=== PATIENT | male | born 1970 | race Caucasian/White ===

== ENCOUNTER 2019-04-18 08:43 | Emergency (ER) | payer BC ==
[~2019-04-18] VITALS: Ht 177.8 cm; Wt 113.4 kg
[2019-04-18 09:00] VITALS: BP 163/89
[2019-04-18] MEDS ORDERED: diazePAM 5 MG TABLET PO ONE (09:15)
[2019-04-18] MEDS ORDERED: MORPHINE SULFATE 10 MG/ML VIAL. IM ONE (09:15)
[2019-04-18] MEDS ORDERED: predniSONE 10 MG TABLET PO ONE (09:15)
[2019-04-18] MEDS ORDERED: DICL50TA4 PO (09:36)
[2019-04-18] MEDS ORDERED: CYCL10TA2 PO (09:36)
[2019-04-18] MEDS ORDERED: METH4TAB2 PO (09:36)
--- NOTE | 2019-04-18 09:36 | PHYS DOC ---
Past Medical History Past Medical History: No Pertinent History Past Surgical History: No Surgical History Alcohol Use: None Drug Use: None Adult General Chief Complaint Chief Complaint: LOWER BACK PAIN OR INJURY HPI HPI Patient is a 49 year old male with history of back pain who presents to the ED today complaining of 10 out of 10 right low back pain radiating to the right lower extremity that began this morning. Patient states he was sitting on the toilet when the pain began. Patient denies any loss of bowel/bladder function. Denies any numbness or tingling to bilateral lower extremities. Denies any injury. He states he has had similar pain before and his PCP took him for physical therapy which did nothing for him. Patient states the pain is worse on movement. Review of Systems Review of Systems Constitutional: Denies fever or chills [] GI: Denies abdominal pain, nausea, vomiting, bloody stools or diarrhea [] : Denies dysuria or hematuria [] Musculoskeletal: Reports low back pain Integument: Denies rash or skin lesions [] Neurologic: Denies headache, focal weakness or sensory changes [] All other systems were reviewed and found to be within normal limits, except as documented in this note. Current Medications Current Medications Current Medications Medications (Trade) Dose Ordered Sig/Jaya Start Time Stop Time Status Last Admin Dose Admin Diazepam (Valium) 5 mg 1X ONCE 04/18/19 09:15 04/18/19 09:19 DC Morphine Sulfate (Morphine Sulfate) 5 mg 1X ONCE 04/18/19 09:15 04/18/19 09:19 DC Prednisone (Prednisone) 50 mg 1X ONCE 04/18/19 09:15 04/18/19 09:19 DC Allergies Allergies Allergies Coded Allergies Type Severity Reaction Last Updated Verified No Known Drug Allergies 04/18/19 No Physical Exam Physical Exam Constitutional: Well developed, well nourished, no acute distress, non-toxic appearance. [] Abdomen: Bowel sounds normal, soft, no tenderness, no masses, no pulsatile masses. [] Skin: Warm, dry, no erythema, no rash. [] Back: Diffuse paraspinal muscle tenderness bilateral lumbar spine, no midline spine tenderness, no CVA tenderness. Positive right leg straight raises at approximately 30. Extremities: No tenderness, no cyanosis, no clubbing, ROM intact, no edema. [] Neurologic: Alert and oriented X 3, normal motor function, normal sensory function, no focal deficits noted. [] Psychologic: Affect normal, judgement normal, mood normal. [] Current Patient Data Vital Signs Vital Signs Date Time Temp Pulse Resp B/P (MAP) Pulse Ox O2 Delivery O2 Flow Rate FiO2 04/18/19 09:00 97.6 72 18 163/89 (113) 100 Room Air 97.6 EKG EKG [] Radiology/Procedures Radiology/Procedures [] Course & Med Decision Making Course & Med Decision Making Pertinent Labs and Imaging studies reviewed. (See chart for details) This is a 49-year-old male patient presented to the ED today with right low back pain radiating to the right lower extremity. No known injury. Patient was discharged with Medrol Dosepak, cyclobenzaprine, and diclofenac. Follow-up with PCP. Benjy recommended the back. Dragon Disclaimer Dragon Disclaimer This electronic medical record was generated, in whole or in part, using a voice recognition dictation system. Departure Departure Impression: Primary Impression: Low back pain Additional Impression: Sciatica, right side Disposition: 01 HOME, SELF-CARE Condition: STABLE Referrals: BAYLEE CHA (PCP) follow up in 1 week Patient Instructions: Back Pain, Adult Additional Instructions: You were evaluated in the emergency room for back pain. Take the prescribed medications as ordered. Follow-up with your doctor in a week. Scripts Diclofenac Sodium (DICLOFENAC SODIUM) 50 Mg Tablet.dr 1 TAB PO BID, #20 TAB 0 Refills Prov: JOAN MORGAN APRN 04/18/19 Methylprednisolone (MEDROL) 4 Mg Tab.ds.pk 1 PKG PO UD, #1 PKG Prov: JOAN MORGAN APRN 04/18/19 Cyclobenzaprine Hcl (CYCLOBENZAPRINE HCL) 10 Mg Tablet 1 TAB PO TID, #30 TAB Prov: JOAN MORGAN APRN 04/18/19 Problem Qualifiers Primary Impression: Low back pain Chronicity: acute Back pain laterality: right Sciatica presence: with sciatica Sciatica laterality: sciatica of right side Qualified Codes: M54.41 - Lumbago with sciatica, right side JOAN MORGAN APRN Apr 18, 2019 09:36
== END 2019-04-18 09:46 | disposition home or self-care (01) ==
LOC: ER 08:43
DX: M54.41 Lumbago with sciatica, right side (principal)
CPT/HCPCS: 96372; 99283; J2270

== ENCOUNTER 2021-04-29 09:50 | Emergency (ER) | payer BC ==
[~2021-04-29] VITALS: Ht 177.8 cm; Wt 120.0 kg
[~2021-04-29 09:50] MED LIST: CYCL10TA2 PO; DICL50TA4 PO; METH4TAB2 PO
[2021-04-29] MEDS ORDERED: ONDANSETRON PF 4 MG/2 ML VIAL. IVP ONE (10:15)
[2021-04-29] MEDS ORDERED: IV NORMAL SALINE 1000ML BAG 1,000 ML IV SCH (10:15)
--- NOTE | 2021-04-29 10:17 | ED.ADGEN ---
Past Medical History Past Medical History: No Pertinent History Past Surgical History: Other Additional Past Surgical Histo: hand surgery Smoking Status: Never Smoker Alcohol Use: None Drug Use: None General Adult EDM: Chief Complaint: ABDOMINAL PAIN HPI: HPI: Patient is a 51-year-old male who arrives ambulatory to the emergency department complaining of right lower quadrant abdominal pain with radiation into his low back of the right side. Patient states this began yesterday evening and has only worsened. Patient states he woke last night at 11:30 PM with worsening p ain and was unable to go back to sleep. Patient describes his pain is stabbing in nature. Despite this he denies any history of genitourinary change. He further denies any nausea or vomiting. Additionally he denies any history of trauma. Is awake, alert and uncomfortable appearing. Review of Systems: Review of Systems: Constitutional: Denies fever or chills. [] Eyes: Denies change in visual acuity. [] HENT: Denies nasal congestion or sore throat. [] Respiratory: Denies cough or shortness of breath. [] Cardiovascular: Denies chest pain or edema. [] GI: Reports abdominal pain. Denies nausea, vomiting, bloody stools or diarrhe a. [] : Denies dysuria. [] Musculoskeletal: Reports back pain. Denies joint pain. [] Integument: Denies rash. [] Neurologic: Denies headache, focal weakness or sensory changes. [] Endocrine: Denies polyuria or polydipsia. [] Lymphatic: Denies swollen glands. [] Psychiatric: Denies depression or anxiety. [] Current Medications: Current Medications Medications (Trade) Dose Ordered Sig/Jaya Start Time Stop Time Status Last Admin Dose Admin Info (CONTRAST GIVEN -- Rx MONITORING) 1 each PRN DAILY PRN 04/29/21 11:00 05/01/21 10:59 Iohexol (Omnipaque 300 Mg/ml) 75 ml 1X ONCE 04/29/21 11:00 04/29/21 11:01 DC Morphine Sulfate (Morphine Sulfate) 4 mg PRN Q15MIN PRN 04/29/21 10:15 04/30/21 10:14 04/29/21 11:18 4 MG Ondansetron HCl (Zofran) 4 mg 1X ONCE 04/29/21 10:15 04/29/21 10:16 DC 04/29/21 10:37 4 MG Sodium Chloride 1,000 ml @ 100 mls/hr Q10H 04/29/21 10:15 04/29/21 20:14 04/29/21 10:38 100 MLS/HR Allergies: Allergies: Allergies Coded Allergies Type Severity Reaction Last Updated Verified No Known Drug Allergies 04/18/19 No Physical Exam: PE: Constitutional: Uncomfortable appearing. Well developed, well nourished, non- toxic appearance. [] HENT: Normocephalic, atraumatic, bilateral external ears normal, oropharynx moist, no oral exudates, nose normal. [] Eyes: PERRLA, EOMI, conjunctiva normal, no discharge. [] Neck: Normal range of motion, no tenderness, supple, no stridor. [] Cardiovascular:Heart rate regular rhythm, no murmur [] Lungs & Thorax: Bilateral breath sounds clear to auscultation [] Abdomen: Tenderness to palpation right lower quadrant without guarding or rebound. Bowel sounds normal, soft, no masses, no pulsatile masses. [] Skin: Warm, dry, no erythema, no rash. [] Back: No tenderness, no CVA tenderness. [] Extremities: No tenderness, no cyanosis, no clubbing, ROM intact, no edema. [] Neurologic: Alert and oriented X 3, normal motor function, normal sensory function, no focal deficits noted. [] Psychologic: Affect normal, judgement normal, mood normal. [] Current Patient Data: Labs: Laboratory Tests Test 04/29/21 10:10 04/29/21 11:15 White Blood Count 18.7 x10^3/uL (4.0-11.0) H Red Blood Count 5.49 x10^6/uL (4.30-5.70) Hemoglobin 16.0 g/dL (13.0-17.5) Hematocrit 46.1 % (39.0-53.0) Mean Corpuscular Volume 84 fL (79-100) Mean Corpuscular Hemoglobin 29 pg (25-35) Mean Corpuscular Hemoglobin Concent 35 g/dL (31-37) Red Cell Distribution Width 12.8 % (11.5-14.5) Platelet Count 212 x10^3/uL (140-400) Neutrophils (%) (Auto) 79 % (31-73) H Lymphocytes (%) (Auto) 12 % (24-48) L Monocytes (%) (Auto) 8 % (0-9) Eosinophils (%) (Auto) 0 % (0-3) Basophils (%) (Auto) 1 % (0-3) Neutrophils # (Auto) 14.8 x10^3/uL (1.8-7.7) H Lymphocytes # (Auto) 2.2 x10^3/uL (1.0-4.8) Monocytes # (Auto) 1.5 x10^3/uL (0.0-1.1) H Eosinophils # (Auto) 0.0 x10^3/uL (0.0-0.7) Basophils # (Auto) 0.2 x10^3/uL (0.0-0.2) Segmented Neutrophils % 86 % (35-66) H Band Neutrophils % 2 % (0-9) Lymphocytes % 8 % (24-48) L Monocytes % 4 % (0-10) Platelet Estimate Adequate (ADEQUATE) Sodium Level 138 mmol/L (136-145) Potassium Level 4.0 mmol/L (3.5-5.1) Chloride Level 104 mmol/L (98-107) Carbon Dioxide Level 22 mmol/L (21-32) Anion Gap 12 (6-14) Blood Urea Nitrogen 14 mg/dL (8-26) Creatinine 1.1 mg/dL (0.7-1.3) Estimated GFR (Cockcroft-Gault) 70.0 BUN/Creatinine Ratio 13 (6-20) Glucose Level 142 mg/dL (70-99) H Calcium Level 9.6 mg/dL (8.5-10.1) Total Bilirubin 0.8 mg/dL (0.2-1.0) Aspartate Amino Transferase (AST) 20 U/L (15-37) Alanine Aminotransferase (ALT) 48 U/L (16-63) Alkaline Phosphatase 87 U/L (46-116) Total Protein 7.7 g/dL (6.4-8.2) Albumin 4.0 g/dL (3.4-5.0) Albumin/Globulin Ratio 1.1 (1.0-1.7) Urine Collection Type Unknown Urine Color Yellow Urine Clarity Clear Urine pH 8.0 (<5.0-8.0) Urine Specific Fowler 1.015 (1.000-1.030) Urine Protein Negative mg/dL (NEG-TRACE) Urine Glucose (UA) Negative mg/dL (NEG) Urine Ketones (Stick) Negative mg/dL (NEG) Urine Blood Negative (NEG) Urine Nitrite Negative (NEG) Urine Bilirubin Negative (NEG) Urine Urobilinogen Dipstick 0.2 mg/dL (0.2 mg/dL) Urine Leukocyte Esterase Negative (NEG) Urine RBC 0 /HPF (0-2) Urine WBC 0 /HPF (0-4) Urine Bacteria 0 /HPF (0-FEW) Laboratory Tests 04/29/21 10:10 Laboratory Tests 04/29/21 10:10 Vital Signs: Vital Signs Date Time Temp Pulse Resp B/P (MAP) Pulse Ox O2 Delivery O2 Flow Rate FiO2 04/29/21 11:18 20 97 Room Air 04/29/21 11:05 76 149/96 (113) 04/29/21 10:02 97.9 97.9 EKG: EKG: [] Heart Score: C/O Chest Pain: No Risk Factors: Risk Factors: DM, Current or recent (<one month) smoker, HTN, HLP, family history of CAD, obesity. Risk Scores: Score 0 - 3: 2.5% MACE over next 6 weeks - Discharge Home Score 4 - 6: 20.3% MACE over next 6 weeks - Admit for Clinical Observation Score 7 - 10: 72.7% MACE over next 6 weeks - Early Invasive Strategies Radiology/Procedures: Radiology/Procedures: [] Impression: [facility] [address] [place], [place] [id number] IMAGING REPORT Signed PATIENT: TAMIA HOWELL ACCOUNT: [id number] : 1970 LOCATION: ER AGE: 51 SEX: M EXAM STATUS: REG ER ORD. PHYSICIAN: RAY ROGERS DO REASON: Right-sided abdominal pain. PROCEDURE: CT ABD PELV W/ IV CONTRST ONLY INDICATION: Reason: Right-sided abdominal pain. / Spl. Instructions: IV omni 300 75 mls / History: . COMPARISON: None. TECHNIQUE: Axial CT images obtained through the abdomen and pelvis with contrast. One or more of the following individualized dose reduction techniques were utilized for this examination: 1. Automated exposure control; 2. Adjustment of the mA and/or kV according to patient size; 3. Use of iterative reconstruction technique. FINDINGS: Abdomen and pelvis with contrast. Calcified granuloma right lung base with calcified lymph node also seen at mediastinum which can be seen with chronic granulomatous disease. There is a mild prominence of the distal esophageal wall. Abdominal aorta is not aneurysmal. There is some mild ectasia distally. Fat-containing inguinal hernias. No intrahepatic bile duct dilation. The liver is low density which can be seen with fatty infiltration. Liver is prominent in size. No peripancreatic fluid collection. Spleen unremarkable. No hydronephrosis. There is some prominence of the pancreatic duct. Pancreatic duct measures up to approximately 6 mm. Lobulated appearance of the kidneys. Urinary bladder is well distended at time of exam. Wall thickening of the sigmoid colon with adjacent edema to the fat and diverticulosis. No periappendiceal inflammatory changes. Degenerative changes of the spine. Degenerative changes of the hips. IMPRESSION: * Wall thickening of the sigmoid colon with adjacent edema to the fat. Could be from causes such as diverticulitis but a follow-up could be obtained after treatment to ensure this resolves to exclude less common neoplastic causes. * Dilatation of the pancreatic duct is seen. Would consider obtaining pancreatic protocol MRI with MRCP images to ensure that there is not a pa thologic cause such as a mass, stricture or stone contributing to this appearance. * Liver is low density which can be seen with fatty infiltration. Electronically signed by: Uriel Cueva MD (04/29/2021 11:43 AM) [id number] DICTATED and SIGNED BY: URIEL CUEVA MD DATE: 04/29/21 [id number] 0 Course & Med Decision Making: Course & Med Decision Making Pertinent Labs and Imaging studies reviewed. (See chart for details). The patient remains awake, alert and states he is feeling much better. Patient does have findings consistent with possible diverticulitis from CT imaging. This is unusual in that the patient does not report any pain in the left lower quadrant rather he states it is in the right lower quadrant. Additionally the patient has some ductal dilation of the pancreatic duct which has been recommended for further study and evaluation. I have communicated this to the patient and offered him admission for pain control. The patient states that he is not having any difficulty managing his pain at this point. I have elected to place him on antibiotics as well as pain medicine. I have also encouraged him return with any new/worsening pain or change to his condition. He is otherwise been instructed to follow-up with his primary care physician for further evaluation with resolution of his diverticulitis. He is also been advised to follow-up with respect to the findings revealed from CT imaging as a relates to his pancreas. The patient understands and states he will do so. He is nontoxic-appearing and stable for discharge. [] Dragon Disclaimer: Dragon Disclaimer: This electronic medical record was generated, in whole or in part, using a voice recognition dictation system. Departure Departure Impression: Primary Impression: Diverticulitis Additional Impression: Pancreatic duct dilated Disposition: HOME / SELF CARE / HOMELESS Condition: IMPROVED Referrals: BAYLEE CHA (PCP) Patient Instructions: Diverticulitis Scripts Ciprofloxacin Hcl (CIPRO) 500 Mg Tablet 1 TAB PO BID for 7 Days, #14 TAB 0 Refills Prov: ARY ROGERS DO 04/29/21 Metronidazole (FLAGYL) 500 Mg Tablet 1 TAB PO TID for 7 Days, #21 TAB Prov: ARY ROGERS DO 04/29/21 Hydrocodone/Acetaminophen (Hydrocodone-Acetamin 5-325 mg) 1 Each Tablet 1 EACH PO Q6HRS, #12 TAB Prov: ARY ROGERS DO 04/29/21 Problem Qualifiers ARY ROGERS DO Apr 29, 2021 10:17
[2021-04-29 10:28] LABS: BASO # 0.2 x10^3/uL (0.0-0.2); BASO % 1 % (0-3); EOS % 0 % (0-3); HEMATOCRIT 46.1 % (39.0-53.0); LYMPH # 2.2 x10^3/uL (1.0-4.8); LYMPH % 12 % (24-48); MEAN CORPUSCULAR HEMOGLOBIN 29 pg (25-35); MEAN CORPUSCULAR HGB CONC 35 g/dL (31-37); MEAN CORPUSCULAR VOLUME 84 fL (79-100); MONO # 1.5 x10^3/uL (0.0-1.1); MONO % 8 % (0-9); NEUT # 14.8 x10^3/uL (1.8-7.7); NEUT % 79 % (31-73); PLATELET COUNT 212 x10^3/uL (140-400); RED BLOOD COUNT 5.49 x10^6/uL (4.30-5.70); RED CELL DISTRIBUTION WIDTH 12.8 % (11.5-14.5); WHITE BLOOD COUNT 18.7 x10^3/uL (4.0-11.0)
[2021-04-29 10:31] LABS: CALCIUM 9.6 mg/dL (8.5-10.1); CREATININE 1.1 mg/dL (0.7-1.3)
[2021-04-29 10:36] LABS: ALBUMIN/GLOBULIN RATIO 1.1 (1.0-1.7); TOTAL BILIRUBIN 0.8 mg/dL (0.2-1.0); TOTAL PROTEIN 7.7 g/dL (6.4-8.2)
[2021-04-29] MEDS: MORPHINE SULFATE 4 MG/ML VIAL. IV/SQ PRN ×2 (10:38→11:18)
[2021-04-29] MEDS ORDERED: CONTRAST GIVEN. MC PRN (11:00)
[2021-04-29] MEDS ORDERED: IOHEXOL 300 MG/ML 100ML VIAL. IV ONE (11:00)
[2021-04-29 11:24] LABS: BILIRUBIN,URINE NEGATIVE (NEG); CLARITY,URINE CLEAR; COLOR,URINE YELLOW; NITRITE,URINE NEGATIVE (NEG); PROTEIN,URINE NEGATIVE (NEG-TRACE); UROBILINOGEN,URINE 0.2 mg/dL (0.2 mg/dL)
[2021-04-29 11:37] LABS: BACTERIA,URINE 0 /HPF (0-FEW); RBC,URINE 0 /HPF (0-2); WBC,URINE 0 /HPF (0-4)
[2021-04-29 11:39] LABS: % BANDS 2 % (0-9); % LYMPHS 8 % (24-48); % MONOS 4 % (0-10); % SEGS 86 % (35-66); PLT ESTIMATE ADEQUATE (ADEQUATE)
--- NOTE | 2021-04-29 11:46 | RAD ---
INDICATION: Reason: Right-sided abdominal pain. / Spl. Instructions: IV omni 300 75 mls / History: . COMPARISON: None. TECHNIQUE: Axial CT images obtained through the abdomen and pelvis with contrast. One or more of the following individualized dose reduction techniques were utilized for this examinat ion: 1. Automated exposure control; 2. Adjustment of the mA and/or kV according to patient size; 3 . Use of iterative reconstruction technique. FINDINGS: Abdomen and pelvis with contrast. Calcified granuloma right lung base with calcified lymph node also seen at mediastinum which can be seen with chronic granulomatous disease. There is a mild prominence of the distal esophageal wall. Abdominal aorta is not aneurysmal. There is some mild ectasia distally. Fat-containing inguinal hernias. No intrahepatic bile duct dilation. The liver is low density which can be seen with fatty infiltratio n. Liver is prominent in size. No peripancreatic fluid collection. Spleen unremarkable. No hydronephrosis. There is some prominence of the pancreatic duct. Pancreatic duct measures up to approximately 6 mm. Lobulated appearance of the kidneys. Urinary bladder is well distended at time of exam. Wall thickening of the sigmoid colon with adjacent edema to the fat and diverticulosis. No periappendiceal inflammatory changes. Degenerative changes of the spine. Degenerative changes of the hips. IMPRESSION: * Wall thickening of the sigmoid colon with adjacent edema to the fat. Could be from causes such as diverticulitis but a follow-up could be obtained after treatment to ensure this resolves to exclude l ess common neoplastic causes. * Dilatation of the pancreatic duct is seen. Would consider obtaining pancreatic protocol MRI with M GRAPE GROWER images to ensure that there is not a pathologic cause such as a mass, stricture or stone contribu ting to this appearance. * Liver is low density which can be seen with fatty infiltration. Electronically signed by: Talha Blevins MD (04/29/2021 11:43 AM) [id number]
[2021-04-29] MEDS ORDERED: HYDR-2759 PO (11:59)
[2021-04-29] MEDS ORDERED: METR500T PO (11:59)
[2021-04-29] MEDS ORDERED: CIPR500T94 PO (11:59)
[2021-04-29 12:05] VITALS: BP 158/74
== END 2021-04-29 12:30 | disposition home or self-care (01) ==
LOC: ER 09:50
DX: K57.92 Diverticulitis of intestine, part unspecified, without perforation or abscess without bleeding (principal); K86.89 Other specified diseases of pancreas
CPT/HCPCS: 36415; 74177; 80053; 81001; 85007; 85025; 96361; 96374; 96375; 96376; 99285; J2270; J2405; J7030

== ENCOUNTER 2021-05-01 13:17 | Inpatient (IN) | payer BC ==
[~2021-05-01] VITALS: Ht 177.8 cm; Wt 118.0 kg
[~2021-05-01 13:17] MED LIST changes: +CIPR500T94 PO; +HYDR-2759 PO; +METR500T PO
[2021-05-01] MEDS ORDERED: VANCOMYCIN PER PHARMACY MC ONE (13:45)
--- NOTE | 2021-05-01 13:48 | PHYS DOC ---
Past Medical History Past Medical History: No Pertinent History, Diverticulitis Past Surgical History: Other Additional Past Surgical Histo: hand surgery Smoking Status: Never Smoker Alcohol Use: None Drug Use: None General Adult EDM: Chief Complaint: ABDOMINAL PAIN HPI: HPI: Patient is a 51 year old male with a history of chronic back pain who presents to the ED today complaining of 10 out of 10 generalized abdominal pain, symptoms began 4 days ago. Patient states he was seen in the ED 2 days ago and diagnosed with diverticulitis. He states he was started on Cipro Flagyl and hydrocodone. He states symptoms have gotten worse. He could not handle the pain today despite taking hydrocodone. He states he has an appointment with a payment manager Dr. Norris at 3 PM today Review of Systems: Review of Systems: Constitutional: Denies fever or chills. [] Eyes: Denies change in visual acuity. [] HENT: Denies nasal congestion or sore throat. [] Respiratory: Denies cough or shortness of breath. [] Cardiovascular: Denies chest pain or edema. [] GI: Reports abdominal pain, denies nausea, vomiting, bloody stools or diarrhea. [] : Denies dysuria. [] Musculoskeletal: Denies back pain or joint pain. [] Integument: Denies rash. [] Neurologic: Denies headache, focal weakness or sensory changes. [] Psychiatric: Denies depression or anxiety. [] Heart Score: C/O Chest Pain: N/A Risk Factors: Risk Factors: DM, Current or recent (<one month) smoker, HTN, HLP, family history of CAD, obesity. Risk Scores: Score 0 - 3: 2.5% MACE over next 6 weeks - Discharge Home Score 4 - 6: 20.3% MACE over next 6 weeks - Admit for Clinical Observation Score 7 - 10: 72.7% MACE over next 6 weeks - Early Invasive Strategies Allergies: Allergies: Allergies Coded Allergies Type Severity Reaction Last Updated Verified No Known Drug Allergies 04/18/19 No Physical Exam: PE: Constitutional: Well developed, well nourished, no acute distress, non-toxic appearance. [] HENT: Normocephalic, atraumatic, bilateral external ears normal, oropharynx moist, no oral exudates, nose normal. [] Eyes: PERRLA, EOMI, conjunctiva normal, no discharge. [] Neck: Normal range of motion, no tenderness, supple, no stridor. [] Cardiovascular:Heart rate regular rhythm, no murmur [] Lungs & Thorax: Bilateral breath sounds clear to auscultation [] Abdomen: Rounded abdomen, abdomen appears distended. Bowel sounds normal, soft, diffuse tenderness throughout the abdomen on palpation, no masses, no pulsatile masses. [] Skin: Warm, dry, no erythema, no rash. [] Back: No tenderness, no CVA tenderness. [] Extremities: No tenderness, no cyanosis, no clubbing, ROM intact, no edema. [] Neurologic: Alert and oriented X 3, normal motor function, normal sensory function, no focal deficits noted. [] Psychologic: Affect normal, judgement normal, mood normal. [] EKG: EKG: [] Radiology/Procedures: Radiology/Procedures: [] Course & Med Decision Making: Course & Med Decision Making Pertinent Labs and Imaging studies reviewed. (See chart for details) This is a 51-year-old male patient presented to the ED today with worsening abdominal pain, symptoms began on Wednesday, was seen in the ED on Wednesday this week diagnosed with diverticulitis. He was sent home on Cipro Flagyl and hydrocodone. He states symptoms have gotten worse CBC with a WBC of 15.2, CMP with no acute findings. Spoke with Dr. Katz who accepted patient for admission Routine consult placed for GI We will continue IV antibiotics and IV fluids Marleny Disclaimer: Marleny Disclaimer: This electronic medical record was generated, in whole or in part, using a voice recognition dictation system. Departure Departure Impression: Primary Impression: Diverticulitis Disposition: ADMITTED INPATIENT Condition: STABLE Referrals: BAYLEE CHA (PCP) JOAN MORGAN [employer]AR[employer] INSPECTOR May 01, 2021 13:47
[2021-05-01] MEDS ORDERED: IV NORMAL SALINE 1000ML BAG 1,000 ML IV ONE ×2 (14:00→15:00)
[2021-05-01] MEDS: MORPHINE SULFATE 4 MG/ML VIAL. IV/SQ PRN ×2 (14:09→15:09)
[2021-05-01 14:10] LABS: BASO # 0.2 x10^3/uL (0.0-0.2); BASO % 1 % (0-3); EOS # 0.1 x10^3/uL (0.0-0.7); EOS % 1 % (0-3); HEMOGLOBIN 15.3 g/dL (13.0-17.5); LYMPH # 2.3 x10^3/uL (1.0-4.8); LYMPH % 15 % (24-48); MEAN CORPUSCULAR HEMOGLOBIN 30 pg (25-35); MEAN CORPUSCULAR HGB CONC 36 g/dL (31-37); MEAN CORPUSCULAR VOLUME 85 fL (79-100); MONO # 1.2 x10^3/uL (0.0-1.1); MONO % 8 % (0-9); NEUT # 11.4 x10^3/uL (1.8-7.7); NEUT % 75 % (31-73); PLATELET COUNT 230 x10^3/uL (140-400); RED BLOOD COUNT 5.08 x10^6/uL (4.30-5.70); RED CELL DISTRIBUTION WIDTH 12.4 % (11.5-14.5); WHITE BLOOD COUNT 15.2 x10^3/uL (4.0-11.0)
[2021-05-01] MEDS ORDERED: ONDANSETRON PF 4 MG/2 ML VIAL. IVP ONE (14:15)
[2021-05-01] MEDS ORDERED: PIPERACILLIN/TAZOBACTAM 4.5 GM in IV NORMAL SALINE 100ML 100 ML IV ONE (14:15)
[2021-05-01 14:17] LABS: CREATININE 1.1 mg/dL (0.7-1.3); POTASSIUM 3.8 mmol/L (3.5-5.1)
[2021-05-01] MEDS: VANCOMYCIN 2 GM in IV NORMAL SALINE 500ML BAG 500 ML IV ONE ×2 (14:17→16:55)
[2021-05-01 14:23] LABS: ALBUMIN 3.6 g/dL (3.4-5.0); ALBUMIN/GLOBULIN RATIO 0.9 (1.0-1.7); TOTAL BILIRUBIN 0.6 mg/dL (0.2-1.0); TOTAL PROTEIN 7.4 g/dL (6.4-8.2)
[2021-05-01] MEDS ORDERED: ONDANSETRON PF 4 MG/2 ML VIAL. IV PRN (15:00)
--- NOTE | 2021-05-01 16:05 | PDOC2 ---
GI CONSULT Date of Service: DATE: 05/01/21 TIME: 15:49 Reason For Consult: diverticulitis HPI: HPI: 51 y/o male seen in ER. Ill since Wednesday or Wednesday w/ increased lower back pain and lower abdominal pain (suprapubic and RLQ mostly). Came to ER on 04/29; noted w/ leukocytosis and possible diverticulitis (sigmoid) on CT, discharge to home w/ PO atbx and hydrocodone. [place] better yesterday and when he woke up this morning he had no pain for about 30 minutes. Then suddenly pain recurred much worse than previously. H/o heartburn but none for three years since he avoid certain foods; previously took Tums PRN. No dysphagia, n/v, constipation, hematochezia, melena, or weight loss. Did have some diarrhea a couple days ago (once) but had a normal stool yesterday. No previous EGD or colonoscopy. No GB, liver, pancreas, or PUD history. Has been taking Aleve. Previous CT noted mild prominence of distal esophagus wall, possible fatty liver, prominence of pancreatic duct (6mm), wall thickening of the sigmoid colon with adjacent edema to the fat and diverticulosis, no periappendiceal inflammation. Given vanco and Zosyn in ER. Interval CT ordered but apparently cancelled because WBC improved. PMH: PMH: back pain/DDD FH: Family History: No pertinent hx (mother might have had stomach cancer) Social History: Smoke: No ALCOHOL: none Drugs: None ROS: GEN: Denies fevers, chills, sweats HEENT: Denies blurred vision, sore throat CV: Denies chest pain RESP: Denies shortness of air, cough GI: Per HPI : Denies hematuria, dysuria ENDO: Denies weight changes NEURO: Denies confusion, dizziness MSK: +back pain SKIN: Denies jaundice, pruritus Vitals: Vitals: Vital Signs Date Time Temp Pulse Resp B/P (MAP) Pulse Ox O2 Delivery O2 Flow Rate FiO2 05/01/21 13:38 98.0 76 24 139/102 (114) 99 Room Air 98.0 Labs: Labs: Laboratory Tests Test 05/01/21 13:58 White Blood Count 15.2 x10^3/uL (4.0-11.0) Red Blood Count 5.08 x10^6/uL (4.30-5.70) Hemoglobin 15.3 g/dL (13.0-17.5) Hematocrit 43.0 % (39.0-53.0) Mean Corpuscular Volume 85 fL (79-100) Mean Corpuscular Hemoglobin 30 pg (25-35) Mean Corpuscular Hemoglobin Concent 36 g/dL (31-37) Red Cell Distribution Width 12.4 % (11.5-14.5) Platelet Count 230 x10^3/uL (140-400) Neutrophils (%) (Auto) 75 % (31-73) Lymphocytes (%) (Auto) 15 % (24-48) Monocytes (%) (Auto) 8 % (0-9) Eosinophils (%) (Auto) 1 % (0-3) Basophils (%) (Auto) 1 % (0-3) Neutrophils # (Auto) 11.4 x10^3/uL (1.8-7.7) Lymphocytes # (Auto) 2.3 x10^3/uL (1.0-4.8) Monocytes # (Auto) 1.2 x10^3/uL (0.0-1.1) Eosinophils # (Auto) 0.1 x10^3/uL (0.0-0.7) Basophils # (Auto) 0.2 x10^3/uL (0.0-0.2) Sodium Level 139 mmol/L (136-145) Potassium Level 3.8 mmol/L (3.5-5.1) Chloride Level 104 mmol/L (98-107) Carbon Dioxide Level 25 mmol/L (21-32) Anion Gap 10 (6-14) Blood Urea Nitrogen 19 mg/dL (8-26) Creatinine 1.1 mg/dL (0.7-1.3) Estimated GFR (Cockcroft-Gault) 70.0 BUN/Creatinine Ratio 17 (6-20) Glucose Level 110 mg/dL (70-99) Lactic Acid Level 1.3 mmol/L (0.4-2.0) Calcium Level 9.0 mg/dL (8.5-10.1) Total Bilirubin 0.6 mg/dL (0.2-1.0) Aspartate Amino Transf (AST/SGOT) 18 U/L (15-37) Alanine Aminotransferase (ALT/SGPT) 39 U/L (16-63) Alkaline Phosphatase 74 U/L (46-116) Total Protein 7.4 g/dL (6.4-8.2) Albumin 3.6 g/dL (3.4-5.0) Albumin/Globulin Ratio 0.9 (1.0-1.7) Lipase 74 U/L (73-393) Procalcitonin < 0.10 ng/mL (0.00-0.10) Allergies: Coded Allergies: No Known Drug Allergies (Unverified , 04/18/19) Medications: Current Medications Medications (Trade) Dose Ordered Sig/Jaya Route PRN Reason Start Time Stop Time Status Last Admin Dose Admin Morphine Sulfate (Morphine Sulfate) 4 mg PRN Q15MIN PRN IV/SQ PAIN GREATER THAN 3/10 05/01/21 13:45 05/02/21 13:44 05/01/21 15:09 Ondansetron HCl (Zofran) 4 mg 1X ONCE IVP 05/01/21 14:15 05/01/21 14:16 DC 05/01/21 14:09 Vancomycin HCl 2 gm/Sodium Chloride 500 ml @ 250 mls/hr 1X ONCE IV 05/01/21 14:30 05/01/21 16:29 05/01/21 14:17 Sodium Chloride 1,000 ml @ 1,000 mls/hr 1X ONCE IV 05/01/21 14:00 05/01/21 14:59 DC 05/01/21 14:07 Imaging: Imaging: CT A/P 04/29/21 FINDINGS: Abdomen and pelvis with contrast. Calcified granuloma right lung base with calcified lymph node also seen at mediastinum which can be seen with chronic granulomatous disease. There is a mild prominence of the distal esophageal wall. Abdominal aorta is not aneurysmal. There is some mild ectasia distally. Fat-containing inguinal hernias. No intrahepatic bile duct dilation. The liver is low density which can be seen with fatty infiltration. Liver is prominent in size. No peripancreatic fluid collection. Spleen unremarkable. No hydronephrosis. There is some prominence of the pancreatic duct. Pancreatic duct measures up to approximately 6 mm. Lobulated appearance of the kidneys. Urinary bladder is well distended at time of exam. Wall thickening of the sigmoid colon with adjacent edema to the fat and diverticulosis. No periappendiceal inflammatory changes. Degenerative changes of the spine. Degenerative changes of the hips. IMPRESSION: * Wall thickening of the sigmoid colon with adjacent edema to the fat. Could be from causes such as diverticulitis but a follow-up could be obtained after treatment to ensure this resolves to exclude less common neoplastic causes. * Dilatation of the pancreatic duct is seen. Would consider obtaining pancreatic protocol MRI with MRCP images to ensure that there is not a pathologic cause such as a mass, stricture or stone contributing to this appearance. * Liver is low density which can be seen with fatty infiltration. PE: GEN: uncomfortable, clutching RLQ/groin/suprapubic area - keeps eyes closed, occasionally stops talking to grimace and moan HEENT: Atraumatic, PERRL LUNGS: CTAB HEART: RRR ABD: a few quiet gurgles, some distention, worst tenderness is LLQ EXTREMITY: No edema SKIN: No rashes, no jaundice NEURO/PSYCH: A & O 3 A/P: A/P: Lower abd pain - worse Leukocytosis - better Recent CT w/ sigmoid diverticulitis H/o heartburn - none x 3 years; prominence of distal esophagus on CT CRC screen - none Fatty liver, prominent pancreatic duct NSAID use -- Pain suddenly worse today - d/w Dr. Sorensen - we will repeat CT. NPO w/ a few ice chips. Pain control and IV atbx per Dr. Katz. Needs outpt EGD and screening colonoscopy after acute issues resolved. Consider outpt MRCP for prominent pancreatic duct. DIDI HAMILTON May 01, 2021 16:05
[2021-05-01] MEDS ORDERED: IOHEXOL 240 MG/ML 50ML VIAL. PO ONE (16:30)
[2021-05-01] MEDS ORDERED: IOHEXOL 300 MG/ML 100ML VIAL. IV ONE (16:30)
[2021-05-01] MEDS ORDERED: CONTRAST GIVEN. MC PRN (16:45)
[2021-05-01 17:03] VITALS: BP 134/96
--- NOTE | 2021-05-01 18:09 | RAD ---
Examination: CT of the abdomen pelvis with oral and IV contrast HISTORY: History of diverticulitis, worsening pain COMPARISON: 04/29/2021 TECHNIQUE: Axial CT images of the CT of the abdomen pelvis were performed with oral and IV contrast. Coronal and sagittal reformats are performed Exposure: One or more of the following individualized dose reduction techniques were utilized for thi s examination: 1. Automated exposure control 2. Adjustment of the mA and/or kV according to patient size 3. Use of iterative reconstruction technique FINDINGS: 4.5 mm nodule left lower lobe of the lung. Diffuse decreased attenuation noted in the liver likely he patic steatosis. The spleen, adrenals grossly appears unremarkable. The catheters mildly distended. T he stomach is mildly distended with visualized pancreas grossly appears unremarkable. The small bowel is nondilated. Feces and gas noted in the colon. There is interval increase in moderate inflammatory fat stranding identified about the proximal sigmo id colon likely acute diverticulitis with small 2 cm air-fluid collection identified within the infla mmation about the sigmoid colon could be phlegmon or developing abscess. Moderate thickened appearanc e of the wall of the sigmoid colon. Urinary bladder is mildly distended. The bilateral kidneys enhance symmetrically. Mild degenerative changes lumbar spine. IMPRESSION: 1. Interval increase in moderate inflammatory fat stranding identified about the proximal sigmoid co keila likely acute diverticulitis again identified with small 2 cm air-fluid collection identified with in the inflammation about the sigmoid colon could be phlegmon or developing abscess. Moderate thicken ed appearance of the wall of the sigmoid colon could be due to nondistention or underlying mucosal pa thology such as neoplasm is not completely excluded. Follow-up colonoscopy is recommended after the a cute episode has resolved. 2. Hepatic steatosis. 3. 4.5 mm nodule left lower lobe of the lung. Follow-up per Fleischner Society guidelines in 6-12 mo nths. Electronically signed by: Surinder Webb MD (05/01/2021 6:07 PM) [id number]
[2021-05-01 19:00] VITALS: BP_SYST 117; BP_SYST 99; BP_DIAS 44; BP_DIAS 90
--- NOTE | 2021-05-01 19:10 | HP ---
ADMIT DATE: 05/01/2021 CHIEF COMPLAINT: Abdominal pain. 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 He presents with abdominal pain, rated at 10/10. He has associated nausea that has been occurring for 4 days. He took some [id number] meds, but that did not seem to help. Describes his symptoms as very irritating. We did some imaging in the ER. We are concerned he might have a diverticulitis or colitis. We are admitting the patient with consultation to GI. PAST MEDICAL HISTORY: Diverticulitis. ALLERGIES: None. FAMILY HISTORY: Diverticulitis. 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 He does not drink, smoke or take drugs. MEDICATIONS: Reviewed, please refer to the MRAD. REVIEW OF SYSTEMS: GENERAL: No history of weight change, weakness or fevers. SKIN: No bruising, hair changes or rashes. EYES: No blurred, double or loss of vision. NOSE AND THROAT: No history of nosebleeds, hoarseness or sore throat. HEART: No history of palpitations, chest pain or shortness of breath on exertion. LUNGS: Denies cough, hemoptysis, wheezing or shortness of breath. GASTROINTESTINAL: Denies changes in appetite, nausea, vomiting, diarrhea or constipation. GENITOURINARY: No history of frequency, urgency, hesitancy or nocturia. NEUROLOGIC: Denies history of numbness, tingling, tremor or weakness. PSYCHIATRIC: No history of panic, anxiety or depression. ENDOCRINE: No history of heat or cold intolerance, polyuria or polydipsia. EXTREMITIES: Denies muscle weakness, joint pain, pain on walking or stiffness. PHYSICAL EXAMINATION: VITALS: Within Normal Limits And Are Stable. GENERAL: No apparent distress. Alert and oriented. HEENT: Normal cephalic atraumatic, external auditory canals are patent. Eyes: Extraocular muscles are intact, pupils are equally round and reactive to light and accommodation. MUSCULOSKELETAL: Well developed, well nourished, good range of motion. ENDOCRINE: No thyromegaly was palpated. LYMPHATICS: No cervical chain or axillary nodes were noted. HEMATOPOIETIC: No bruising. NECK: Supple, no JVD, no thyromegaly was noted. LUNGS: Clear to auscultation in all lung cardoso without rhonchi or wheezing. HEART: RRR, S1, S2 present. Peripheral pulses intact, no obvious murmurs were noted. ABDOMEN: Soft, nontender. Positive bowel sounds no organomegaly, normal bowel sounds. EXTREMITIES: Without any cyanosis, clubbing, or edema. Pedal pulses intact, Homans sign is negative. NEUROLOGIC: Normal speech, normal tone. A and O x 3, moves all extremities, no obvious focal deficits. PSYCHIATRIC: Normal affect, normal mood. Stable. SKIN: No ulcerations or rashes, good skin turgor, no jaundice. VASCULAR: Good capillary refill, neurovascular bundle appears to be intact. LABORATORY DATA: CT of the abdomen shows possible diverticulitis. White count is 15. ASSESSMENT AND PLAN: Diverticulitis. The patient will be admitted. We will start IV Levaquin and Flagyl. Home medications. Deep venous thrombosis prophylaxis. Full code. Consult GI. ANASTASIA/TRESSA DR: ANASTASIA/suleiman TID: [id number]
[2021-05-01] MEDS: MORPHINE SULFATE 4 MG/ML VIAL. IV PRN (19:56)
[2021-05-01] MEDS: FAMOTIDINE 20 MG/2 ML VIAL IVP SCH (21:07)
[2021-05-01 23:00] VITALS: BP 134/90
[2021-05-01] MEDS: metroNIDAZOLE 500 MG TABLET PO SCH (23:09)
[2021-05-02 03:00] VITALS: BP 132/94
[2021-05-02] MEDS: MORPHINE SULFATE 4 MG/ML VIAL. IV PRN ×2 (03:16→10:14)
[2021-05-02] MEDS: metroNIDAZOLE 500 MG TABLET PO SCH (06:19)
[2021-05-02 07:00] VITALS: BP 144/95
[2021-05-02 08:10] LABS: BASO # 0.1 x10^3/uL (0.0-0.2); BASO % 1 % (0-3); EOS % 0 % (0-3); HEMATOCRIT 41.3 % (39.0-53.0); HEMOGLOBIN 14.5 g/dL (13.0-17.5); LYMPH # 1.7 x10^3/uL (1.0-4.8); LYMPH % 15 % (24-48); MEAN CORPUSCULAR HEMOGLOBIN 30 pg (25-35); MEAN CORPUSCULAR HGB CONC 35 g/dL (31-37); MEAN CORPUSCULAR VOLUME 86 fL (79-100); MONO # 1.2 x10^3/uL (0.0-1.1); MONO % 10 % (0-9); NEUT # 8.7 x10^3/uL (1.8-7.7); NEUT % 75 % (31-73); PLATELET COUNT 215 x10^3/uL (140-400); RED BLOOD COUNT 4.82 x10^6/uL (4.30-5.70); RED CELL DISTRIBUTION WIDTH 12.5 % (11.5-14.5); WHITE BLOOD COUNT 11.6 x10^3/uL (4.0-11.0)
[2021-05-02 08:17] LABS: ALBUMIN 3.1 g/dL (3.4-5.0); ALBUMIN/GLOBULIN RATIO 0.8 (1.0-1.7); CALCIUM 8.6 mg/dL (8.5-10.1); CREATININE 1.1 mg/dL (0.7-1.3); POTASSIUM 4.3 mmol/L (3.5-5.1); TOTAL BILIRUBIN 0.6 mg/dL (0.2-1.0); TOTAL PROTEIN 6.9 g/dL (6.4-8.2)
--- NOTE | 2021-05-02 09:27 | PDOC ---
Date of Service: DATE: 05/02/21 TIME: 09:18 Subjective: Subjective: Has a headache, didn't sleep very well. Abd pain is some better - needing morphine less often and periods of pain are shorter. Passing gas and also some stool yesterday. Had chicken broth last night. Objective: Objective: Clear liquids, IV Levaquin, PO Flagyl per primary. Vital Signs: Vital Signs Date Time Temp Pulse Resp B/P (MAP) Pulse Ox O2 Delivery O2 Flow Rate FiO2 05/02/21 07:00 97.8 62 18 144/95 (111) 95 Room Air 97.8 Labs: Laboratory Tests Test 05/01/21 13:58 05/02/21 07:30 White Blood Count 15.2 x10^3/uL 11.6 x10^3/uL Red Blood Count 5.08 x10^6/uL 4.82 x10^6/uL Hemoglobin 15.3 g/dL 14.5 g/dL Hematocrit 43.0 % 41.3 % Mean Corpuscular Volume 85 fL 86 fL Mean Corpuscular Hemoglobin 30 pg 30 pg Mean Corpuscular Hemoglobin Concent 36 g/dL 35 g/dL Red Cell Distribution Width 12.4 % 12.5 % Platelet Count 230 x10^3/uL 215 x10^3/uL Neutrophils (%) (Auto) 75 % 75 % Lymphocytes (%) (Auto) 15 % 15 % Monocytes (%) (Auto) 8 % 10 % Eosinophils (%) (Auto) 1 % 0 % Basophils (%) (Auto) 1 % 1 % Neutrophils # (Auto) 11.4 x10^3/uL 8.7 x10^3/uL Lymphocytes # (Auto) 2.3 x10^3/uL 1.7 x10^3/uL Monocytes # (Auto) 1.2 x10^3/uL 1.2 x10^3/uL Eosinophils # (Auto) 0.1 x10^3/uL 0.0 x10^3/uL Basophils # (Auto) 0.2 x10^3/uL 0.1 x10^3/uL Sodium Level 139 mmol/L 140 mmol/L Potassium Level 3.8 mmol/L 4.3 mmol/L Chloride Level 104 mmol/L 104 mmol/L Carbon Dioxide Level 25 mmol/L 28 mmol/L Anion Gap 10 8 Blood Urea Nitrogen 19 mg/dL 12 mg/dL Creatinine 1.1 mg/dL 1.1 mg/dL Estimated GFR (Cockcroft-Gault) 70.0 70.0 BUN/Creatinine Ratio 17 11 Glucose Level 110 mg/dL 120 mg/dL Lactic Acid Level 1.3 mmol/L Calcium Level 9.0 mg/dL 8.6 mg/dL Total Bilirubin 0.6 mg/dL 0.6 mg/dL Aspartate Amino Transf (AST/SGOT) 18 U/L 13 U/L Alanine Aminotransferase (ALT/SGPT) 39 U/L 30 U/L Alkaline Phosphatase 74 U/L 65 U/L Total Protein 7.4 g/dL 6.9 g/dL Albumin 3.6 g/dL 3.1 g/dL Albumin/Globulin Ratio 0.9 0.8 Lipase 74 U/L Procalcitonin < 0.10 ng/mL Imaging: CT A/P 05/01 FINDINGS: 4.5 mm nodule left lower lobe of the lung. Diffuse decreased attenuation noted in the liver likely hepatic steatosis. The spleen, adrenals grossly appears unremarkable. The catheters mildly distended. The stomach is mildly distended with visualized pancreas grossly appears unremarkable. The small bowel is nondilated. Feces and gas noted in the colon. There is interval increase in moderate inflammatory fat stranding identified about the proximal sigmoid colon likely acute diverticulitis with small 2 cm air-fluid collection identified within the inflammation about the sigmoid colon could be phlegmon or developing abscess. Moderate thickened appearance of the wall of the sigmoid colon. Urinary bladder is mildly distended. The bilateral kidneys enhance symmetrically. Mild degenerative changes lumbar spine. IMPRESSION: 1. Interval increase in moderate inflammatory fat stranding identified about the proximal sigmoid colon likely acute diverticulitis again identified with small 2 cm air-fluid collection identified within the inflammation about the s igmoid colon could be phlegmon or developing abscess. Moderate thickened appearance of the wall of the sigmoid colon could be due to nondistention or underlying mucosal pathology such as neoplasm is not completely excluded. Follow-up colonoscopy is recommended after the acute episode has resolved. 2. Hepatic steatosis. 3. 4.5 mm nodule left lower lobe of the lung. Follow-up per Fleischner Society guidelines in 6-12 months. PE: GEN: NAD LUNGS: CTAB HEART: RRR ABD: quiet BS, some distention, RLQ/suprapubic/LLQ tenderness - better NEURO/PSYCH: A & O 3 A/P: Sigmoid diverticulitis - interval CT w/ increased inflammation, possible phlegmon/developing abscess Leukocytosis - better -- Change atbx. Given clears - will review w/ Dr. Sorensen. Consider surgical/IR eval. Justicifation of Admission Dx: Justifications for Admission: Justification of Admission Dx: Yes DIDI HAMILTON May 02, 2021 09:27
--- NOTE | 2021-05-02 10:53 | PDOC2 ---
ZAHIRANATALIE Tonja [employer] 05/02/21 1053: CONSULT Date of Consult Date of Consult DATE: 05/02/21 TIME: 10:47 Reason for Consult Reason for Consult: diverticulitis Referring Physician Referring Physician: Dr Sorensen Identification/Chief Complaint Chief Complaint abdominal pain Source Source: Chart review, Patient History of Present Illness Reason for Visit: Abdominal pain since Wednesday. Seen in ER 04/29, diverticulitis, treated with oral abx. [place] worse 04/30. Returned with severe pain. Ct with increasing inflammation, possible small abscess First episode of diverticulitis, no hx of colonoscopy Currently feels improved from admission Past Medical History Past Medical History no pertinent hx Past Surgical History Past Surgical History: No pertinent history Family History Family History: Cancer (stomach, mother) Social History No ALCOHOL: none Drugs: None Current Problem List Problem List Problems Medical Problems: (1) Diverticulitis Status: Acute Current Medications Current Medications Current Medications Piperacillin Sod/ Tazobactam Sod 4.5 gm/Sodium Chloride 100 ml @ 200 mls/hr 1X ONCE IV Last administered on 05/01/21at 16:54; Start 05/01/21 at 14:15; Stop 05/01/21 at 14:44; Status DC Vancomycin HCl (Vanco Per Pharmacy) 1 each 1X ONCE MC Last administered on 05/01/21at 13:45; Start 05/01/21 at 13:45; Stop 05/01/21 at 16:48; Status DC Morphine Sulfate (Morphine Sulfate) 4 mg PRN Q15MIN PRN IV/SQ PAIN GREATER THAN 3/10 Last administered on 05/01/21at 15:09; Start 05/01/21 at 13:45; Stop 05/02/21 at 13:44 Ondansetron HCl (Zofran) 4 mg 1X ONCE IVP Last administered on 05/01/21at 14:09; Start 05/01/21 at 14:15; Stop 05/01/21 at 14:16; Status DC Vancomycin HCl 2 gm/Sodium Chloride 500 ml @ 250 mls/hr 1X ONCE IV Last administered on 05/01/21at 16:55; Start 05/01/21 at 14:30; Stop 05/01/21 at 16:29; Status DC Sodium Chloride 1,000 ml @ 1,000 mls/hr 1X ONCE IV Last administered on 05/01/21at 14:07; Start 05/01/21 at 14:00; Stop 05/01/21 at 14:59; Status DC Ondansetron HCl (Zofran) 4 mg PRN Q8HRS PRN IV NAUSEA/VOMITING; Start 05/01/21 at 15:00; Stop 05/02/21 at 14:59 Morphine Sulfate (Morphine Sulfate) 4 mg PRN Q2HR PRN IV PAIN Last administered on 05/02/21at 10:14; Start 05/01/21 at 15:00; Stop 05/02/21 at 14:59 Sodium Chloride 1,000 ml @ 125 mls/hr 1X ONCE IV Last administered on 05/01/21at 15:00; Start 05/01/21 at 15:00; Stop 05/01/21 at 22:59; Status DC Famotidine (Pepcid Vial) 20 mg QHS IVP Last administered on 05/01/21at 21:07; Start 05/01/21 at 21:00 Iohexol (Omnipaque 240 Mg/ml) 30 ml 1X ONCE PO Last administered on 05/01/21at 16:30; Start 05/01/21 at 16:30; Stop 05/01/21 at 16:31; Status DC Iohexol (Omnipaque 300 Mg/ml) 75 ml 1X ONCE IV Last administered on 05/01/21at 17:30; Start 05/01/21 at 16:30; Stop 05/01/21 at 16:31; Status DC Info (CONTRAST GIVEN -- Rx MONITORING) 1 each PRN DAILY PRN MC SEE COMMENTS; Start 05/01/21 at 16:45; Stop 05/03/21 at 16:44 Metronidazole (Flagyl) 500 mg Q8HRS PO Last administered on 05/02/21at 06:19; Start 05/01/21 at 22:00; Stop 05/02/21 at 09:25; Status DC Levofloxacin/ Dextrose 100 ml @ 100 mls/hr Q24H IV Last administered on 05/01/21at 21:08; Start 05/01/21 at 21:00; Stop 05/02/21 at 09:25; Status DC Piperacillin Sod/ Tazobactam Sod 3.375 gm/Sodium Chloride 50 ml @ 100 mls/hr Q6HRS IV ; Start 05/02/21 at 12:00 Active Scripts Active Cipro (Ciprofloxacin Hcl) 500 Mg Tablet 1 Tab PO BID 7 Days Flagyl (Metronidazole) 500 Mg Tablet 1 Tab PO TID 7 Days Hydrocodone-Acetamin 5-325 mg (Hydrocodone/Acetaminophen) 1 Each Tablet 1 Each PO Q6HRS Diclofenac Sodium 50 Mg Tablet.dr 1 Tab PO BID Medrol (Methylprednisolone) 4 Mg Tab.ds.pk 1 Pkg PO UD Cyclobenzaprine Hcl 10 Mg Tablet 1 Tab PO TID Allergies Allergies: Coded Allergies: No Known Drug Allergies (Unverified , 04/18/19) ROS General: YES: Other (sweats ) PSYCHOLOGICAL ROS: No: Anxiety, Depression Eyes: No Blurry vision, No Decreased vision HEENT: No: Heacaches, Sore Throat Hematological and Lymphatic: No: Bleeding Problems, Blood Clots Respiratory: No: Cough, Shortness of breath Cardiovascular: No Chest Pain, No Palpitations Gastrointestinal: Yes Other (see hpi) Genitourinary: No Dysuria, No Hematuria, No Retention Musculoskeletal: No Joint Pain, No Muscle Pain Neurological: No Impaired Coord/balance, No Numbness/Tingling Skin: No Pruritus, No Rash Physical Exam General: Alert, Oriented X3, Cooperative HEENT: Atraumatic, PERRLA Lungs: Clear to auscultation, Normal air movement Heart: Regular rate, Normal S1, Normal S2 Abdomen: Soft, Other (mild ttp lower abdomen ) Extremities: No clubbing, No cyanosis Skin: No rashes, No breakdown Neuro: Normal gait, Normal speech Psych/Mental Status: Mental status NL, Mood NL MUSCULOSKELETAL: No deformity, No muscular tenderness noted Vitals VITALS Vital Signs Date Time Temp Pulse Resp B/P (MAP) Pulse Ox O2 Delivery O2 Flow Rate FiO2 05/02/21 07:00 97.8 62 18 144/95 (111) 95 Room Air 97.8 Labs Labs Laboratory Tests Test 05/01/21 13:58 05/02/21 07:30 White Blood Count 15.2 x10^3/uL (4.0-11.0) 11.6 x10^3/uL (4.0-11.0) Red Blood Count 5.08 x10^6/uL (4.30-5.70) 4.82 x10^6/uL (4.30-5.70) Hemoglobin 15.3 g/dL (13.0-17.5) 14.5 g/dL (13.0-17.5) Hematocrit 43.0 % (39.0-53.0) 41.3 % (39.0-53.0) Mean Corpuscular Volume 85 fL (79-100) 86 fL (79-100) Mean Corpuscular Hemoglobin 30 pg (25-35) 30 pg (25-35) Mean Corpuscular Hemoglobin Concent 36 g/dL (31-37) 35 g/dL (31-37) Red Cell Distribution Width 12.4 % (11.5-14.5) 12.5 % (11.5-14.5) Platelet Count 230 x10^3/uL (140-400) 215 x10^3/uL (140-400) Neutrophils (%) (Auto) 75 % (31-73) 75 % (31-73) Lymphocytes (%) (Auto) 15 % (24-48) 15 % (24-48) Monocytes (%) (Auto) 8 % (0-9) 10 % (0-9) Eosinophils (%) (Auto) 1 % (0-3) 0 % (0-3) Basophils (%) (Auto) 1 % (0-3) 1 % (0-3) Neutrophils # (Auto) 11.4 x10^3/uL (1.8-7.7) 8.7 x10^3/uL (1.8-7.7) Lymphocytes # (Auto) 2.3 x10^3/uL (1.0-4.8) 1.7 x10^3/uL (1.0-4.8) Monocytes # (Auto) 1.2 x10^3/uL (0.0-1.1) 1.2 x10^3/uL (0.0-1.1) Eosinophils # (Auto) 0.1 x10^3/uL (0.0-0.7) 0.0 x10^3/uL (0.0-0.7) Basophils # (Auto) 0.2 x10^3/uL (0.0-0.2) 0.1 x10^3/uL (0.0-0.2) Sodium Level 139 mmol/L (136-145) 140 mmol/L (136-145) Potassium Level 3.8 mmol/L (3.5-5.1) 4.3 mmol/L (3.5-5.1) Chloride Level 104 mmol/L (98-107) 104 mmol/L (98-107) Carbon Dioxide Level 25 mmol/L (21-32) 28 mmol/L (21-32) Anion Gap 10 (6-14) 8 (6-14) Blood Urea Nitrogen 19 mg/dL (8-26) 12 mg/dL (8-26) Creatinine 1.1 mg/dL (0.7-1.3) 1.1 mg/dL (0.7-1.3) Estimated GFR (Cockcroft-Gault) 70.0 70.0 BUN/Creatinine Ratio 17 (6-20) 11 (6-20) Glucose Level 110 mg/dL (70-99) 120 mg/dL (70-99) Lactic Acid Level 1.3 mmol/L (0.4-2.0) Calcium Level 9.0 mg/dL (8.5-10.1) 8.6 mg/dL (8.5-10.1) Total Bilirubin 0.6 mg/dL (0.2-1.0) 0.6 mg/dL (0.2-1.0) Aspartate Amino Transf (AST/SGOT) 18 U/L (15-37) 13 U/L (15-37) Alanine Aminotransferase (ALT/SGPT) 39 U/L (16-63) 30 U/L (16-63) Alkaline Phosphatase 74 U/L (46-116) 65 U/L (46-116) Total Protein 7.4 g/dL (6.4-8.2) 6.9 g/dL (6.4-8.2) Albumin 3.6 g/dL (3.4-5.0) 3.1 g/dL (3.4-5.0) Albumin/Globulin Ratio 0.9 (1.0-1.7) 0.8 (1.0-1.7) Lipase 74 U/L (73-393) Procalcitonin < 0.10 ng/mL (0.00-0.10) Laboratory Tests Test 05/01/21 13:58 05/02/21 07:30 White Blood Count 15.2 x10^3/uL (4.0-11.0) 11.6 x10^3/uL (4.0-11.0) Red Blood Count 5.08 x10^6/uL (4.30-5.70) 4.82 x10^6/uL (4.30-5.70) Hemoglobin 15.3 g/dL (13.0-17.5) 14.5 g/dL (13.0-17.5) Hematocrit 43.0 % (39.0-53.0) 41.3 % (39.0-53.0) Mean Corpuscular Volume 85 fL (79-100) 86 fL (79-100) Mean Corpuscular Hemoglobin 30 pg (25-35) 30 pg (25-35) Mean Corpuscular Hemoglobin Concent 36 g/dL (31-37) 35 g/dL (31-37) Red Cell Distribution Width 12.4 % (11.5-14.5) 12.5 % (11.5-14.5) Platelet Count 230 x10^3/uL (140-400) 215 x10^3/uL (140-400) Neutrophils (%) (Auto) 75 % (31-73) 75 % (31-73) Lymphocytes (%) (Auto) 15 % (24-48) 15 % (24-48) Monocytes (%) (Auto) 8 % (0-9) 10 % (0-9) Eosinophils (%) (Auto) 1 % (0-3) 0 % (0-3) Basophils (%) (Auto) 1 % (0-3) 1 % (0-3) Neutrophils # (Auto) 11.4 x10^3/uL (1.8-7.7) 8.7 x10^3/uL (1.8-7.7) Lymphocytes # (Auto) 2.3 x10^3/uL (1.0-4.8) 1.7 x10^3/uL (1.0-4.8) Monocytes # (Auto) 1.2 x10^3/uL (0.0-1.1) 1.2 x10^3/uL (0.0-1.1) Eosinophils # (Auto) 0.1 x10^3/uL (0.0-0.7) 0.0 x10^3/uL (0.0-0.7) Basophils # (Auto) 0.2 x10^3/uL (0.0-0.2) 0.1 x10^3/uL (0.0-0.2) Sodium Level 139 mmol/L (136-145) 140 mmol/L (136-145) Potassium Level 3.8 mmol/L (3.5-5.1) 4.3 mmol/L (3.5-5.1) Chloride Level 104 mmol/L (98-107) 104 mmol/L (98-107) Carbon Dioxide Level 25 mmol/L (21-32) 28 mmol/L (21-32) Anion Gap 10 (6-14) 8 (6-14) Blood Urea Nitrogen 19 mg/dL (8-26) 12 mg/dL (8-26) Creatinine 1.1 mg/dL (0.7-1.3) 1.1 mg/dL (0.7-1.3) Estimated GFR (Cockcroft-Gault) 70.0 70.0 BUN/Creatinine Ratio 17 (6-20) 11 (6-20) Glucose Level 110 mg/dL (70-99) 120 mg/dL (70-99) Lactic Acid Level 1.3 mmol/L (0.4-2.0) Calcium Level 9.0 mg/dL (8.5-10.1) 8.6 mg/dL (8.5-10.1) Total Bilirubin 0.6 mg/dL (0.2-1.0) 0.6 mg/dL (0.2-1.0) Aspartate Amino Transf (AST/SGOT) 18 U/L (15-37) 13 U/L (15-37) Alanine Aminotransferase (ALT/SGPT) 39 U/L (16-63) 30 U/L (16-63) Alkaline Phosphatase 74 U/L (46-116) 65 U/L (46-116) Total Protein 7.4 g/dL (6.4-8.2) 6.9 g/dL (6.4-8.2) Albumin 3.6 g/dL (3.4-5.0) 3.1 g/dL (3.4-5.0) Albumin/Globulin Ratio 0.9 (1.0-1.7) 0.8 (1.0-1.7) Lipase 74 U/L (73-393) Procalcitonin < 0.10 ng/mL (0.00-0.10) Assessment/Plan Assessment/Plan diverticuliltis, small abscess IV abx, bowel rest, appears improving close observation RIA JUNE MD 05/02/212035: CONSULT Assessment/Plan Assessment/Plan Pt seen and examined. Agree with Ms. Rodriges's note Pt feels better with pain medications abd soft mild TTP LLQ agree with abx and pain meds. hopefully will be able to avoid surgery. Thanks for consult! NATALIE RODRIGES APRN May 02, 2021 10:53 RIA JUNE MD May 02, 2021 20:36
[2021-05-02 11:00] VITALS: BP 136/92
--- NOTE | 2021-05-02 11:24 | NUR ---
SW following. Discussed with RN, pt from home, room air, clear liquid diet. GI following, pt on IV and oral abx. RN advised no SW needs at this time. SW will continue to follow.
--- NOTE | 2021-05-02 11:44 | PDOC ---
[employer] PROGRESS NOTE Date of Service DOS: DATE: 05/02/21 TIME: 11:42 Chief Complaint Chief Complaint Diverticulitis with small abscess CT report as follows; 1. Interval increase in moderate inflammatory fat stranding identified about the proximal sigmoid colon likely acute diverticulitis again identified with small 2 cm air-fluid collection identified within the inflammation about the sigmoid colon could be phlegmon or developing abscess. Moderate thickened appearance of the wall of the sigmoid colon could be due to nondistention or underlying mucosal pathology such as neoplasm is not completely excluded. Follow-up colonoscopy is recommended after the acute episode has resolved. 2. Hepatic steatosis. 3. 4.5 mm nodule left lower lobe of the lung. Follow-up per Fleischner Society guidelines in 6-12 months. History of Present Illness History of Present Illness 05/02/2021 Patient seen and examined Discussed with RN Discussed with case management Chart reviewed I started IV ProcalAmine He is on IV Flagyl and IV Levaquin Discussed with his who is present and seems to be good support for him today Vitals/I&O Vitals/I&O: Vital Signs Date Time Temp Pulse Resp B/P (MAP) Pulse Ox O2 Delivery O2 Flow Rate FiO2 05/02/21 11:00 98.2 72 18 136/92 (107) 96 Room Air 98.2 I & O 05/01/21 05/01/21 05/02/21 15:00 23:00 07:00 Intake Total 2000 ml 1200 ml Balance 2000 ml 1200 ml Physical Exam General: Alert, Oriented X3, Cooperative Heart: Regular rate, Normal S1, Normal S2 Abdomen: Soft, Other (mild ttp lower abdomen ) Extremities: No clubbing, No cyanosis Skin: No rashes, No breakdown Labs Labs: Laboratory Tests Test 05/01/21 13:58 05/02/21 07:30 White Blood Count 15.2 x10^3/uL (4.0-11.0) 11.6 x10^3/uL (4.0-11.0) Red Blood Count 5.08 x10^6/uL (4.30-5.70) 4.82 x10^6/uL (4.30-5.70) Hemoglobin 15.3 g/dL (13.0-17.5) 14.5 g/dL (13.0-17.5) Hematocrit 43.0 % (39.0-53.0) 41.3 % (39.0-53.0) Mean Corpuscular Volume 85 fL (79-100) 86 fL (79-100) Mean Corpuscular Hemoglobin 30 pg (25-35) 30 pg (25-35) Mean Corpuscular Hemoglobin Concent 36 g/dL (31-37) 35 g/dL (31-37) Red Cell Distribution Width 12.4 % (11.5-14.5) 12.5 % (11.5-14.5) Platelet Count 230 x10^3/uL (140-400) 215 x10^3/uL (140-400) Neutrophils (%) (Auto) 75 % (31-73) 75 % (31-73) Lymphocytes (%) (Auto) 15 % (24-48) 15 % (24-48) Monocytes (%) (Auto) 8 % (0-9) 10 % (0-9) Eosinophils (%) (Auto) 1 % (0-3) 0 % (0-3) Basophils (%) (Auto) 1 % (0-3) 1 % (0-3) Neutrophils # (Auto) 11.4 x10^3/uL (1.8-7.7) 8.7 x10^3/uL (1.8-7.7) Lymphocytes # (Auto) 2.3 x10^3/uL (1.0-4.8) 1.7 x10^3/uL (1.0-4.8) Monocytes # (Auto) 1.2 x10^3/uL (0.0-1.1) 1.2 x10^3/uL (0.0-1.1) Eosinophils # (Auto) 0.1 x10^3/uL (0.0-0.7) 0.0 x10^3/uL (0.0-0.7) Basophils # (Auto) 0.2 x10^3/uL (0.0-0.2) 0.1 x10^3/uL (0.0-0.2) Sodium Level 139 mmol/L (136-145) 140 mmol/L (136-145) Potassium Level 3.8 mmol/L (3.5-5.1) 4.3 mmol/L (3.5-5.1) Chloride Level 104 mmol/L (98-107) 104 mmol/L (98-107) Carbon Dioxide Level 25 mmol/L (21-32) 28 mmol/L (21-32) Anion Gap 10 (6-14) 8 (6-14) Blood Urea Nitrogen 19 mg/dL (8-26) 12 mg/dL (8-26) Creatinine 1.1 mg/dL (0.7-1.3) 1.1 mg/dL (0.7-1.3) Estimated GFR (Cockcroft-Gault) 70.0 70.0 BUN/Creatinine Ratio 17 (6-20) 11 (6-20) Glucose Level 110 mg/dL (70-99) 120 mg/dL (70-99) Lactic Acid Level 1.3 mmol/L (0.4-2.0) Calcium Level 9.0 mg/dL (8.5-10.1) 8.6 mg/dL (8.5-10.1) Total Bilirubin 0.6 mg/dL (0.2-1.0) 0.6 mg/dL (0.2-1.0) Aspartate Amino Transf (AST/SGOT) 18 U/L (15-37) 13 U/L (15-37) Alanine Aminotransferase (ALT/SGPT) 39 U/L (16-63) 30 U/L (16-63) Alkaline Phosphatase 74 U/L (46-116) 65 U/L (46-116) Total Protein 7.4 g/dL (6.4-8.2) 6.9 g/dL (6.4-8.2) Albumin 3.6 g/dL (3.4-5.0) 3.1 g/dL (3.4-5.0) Albumin/Globulin Ratio 0.9 (1.0-1.7) 0.8 (1.0-1.7) Lipase 74 U/L (73-393) Procalcitonin < 0.10 ng/mL (0.00-0.10) Assessment and Plan Assessmemt and Plan Problems Medical Problems: (1) Diverticulitis Status: Acute Diverticulitis with small abscess CT report as follows; 1. Interval increase in moderate inflammatory fat stranding identified about the proximal sigmoid colon likely acute diverticulitis again identified with small 2 cm air-fluid collection identified within the inflammation about the sigmoid colon could be phlegmon or developing abscess. Moderate thickened appearance of the wall of the sigmoid colon could be due to nondistention or underlying mucosal pathology such as neoplasm is not completely excluded. Follow-up colonoscopy is recommended after the acute episode has resolved. 2. Hepatic steatosis. 3. 4.5 mm nodule left lower lobe of the lung. Follow-up per Fleischner Society guidelines in 6-12 months. Plan IV Levaquin IV Flagyl IV ProcalAmine Home meds DVT prophylaxis Trend imaging Full code Appreciate subspecialist input Comment Review of Relevant I have reviewed the following items keegan (where applicable) has been applied. Medications: Current Medications Medications (Trade) Dose Ordered Sig/Jaya Route PRN Reason Start Time Stop Time Status Last Admin Dose Admin Piperacillin Sod/ Tazobactam Sod 4.5 gm/Sodium Chloride 100 ml @ 200 mls/hr 1X ONCE IV 05/01/21 14:15 05/01/21 14:44 DC 05/01/21 16:54 Vancomycin HCl (Vanco Per Pharmacy) 1 each 1X ONCE MC 05/01/21 13:45 05/01/21 16:48 DC 05/01/21 13:45 Morphine Sulfate (Morphine Sulfate) 4 mg PRN Q15MIN PRN IV/SQ PAIN GREATER THAN 3/10 05/01/21 13:45 05/02/21 13:44 05/01/21 15:09 Ondansetron HCl (Zofran) 4 mg 1X ONCE IVP 05/01/21 14:15 05/01/21 14:16 DC 05/01/21 14:09 Vancomycin HCl 2 gm/Sodium Chloride 500 ml @ 250 mls/hr 1X ONCE IV 05/01/21 14:30 05/01/21 16:29 DC 05/01/21 16:55 Sodium Chloride 1,000 ml @ 1,000 mls/hr 1X ONCE IV 05/01/21 14:00 05/01/21 14:59 DC 05/01/21 14:07 Morphine Sulfate (Morphine Sulfate) 4 mg PRN Q2HR PRN IV PAIN 05/01/21 15:00 05/02/21 14:59 05/02/21 10:14 Sodium Chloride 1,000 ml @ 125 mls/hr 1X ONCE IV 05/01/21 15:00 05/01/21 22:59 DC 05/01/21 15:00 Famotidine (Pepcid Vial) 20 mg QHS IVP 05/01/21 21:00 05/01/21 21:07 Iohexol (Omnipaque 240 Mg/ml) 30 ml 1X ONCE PO 05/01/21 16:30 05/01/21 16:31 DC 05/01/21 16:30 Iohexol (Omnipaque 300 Mg/ml) 75 ml 1X ONCE IV 05/01/21 16:30 05/01/21 16:31 DC 05/01/21 17:30 Metronidazole (Flagyl) 500 mg Q8HRS PO 05/01/21 22:00 05/02/21 09:25 DC 05/02/21 06:19 Levofloxacin/ Dextrose 100 ml @ 100 mls/hr Q24H IV 05/01/21 21:00 05/02/21 09:25 DC 05/01/21 21:08 Justifications for Admission Other Justification DELORES SPRINGER III DO May 02, 2021 11:44
[2021-05-02] MEDS: PIPERACILLIN/TAZOBACTAM 3.375 GM in IV NORMAL SALINE 50ML 50 ML IV SCH ×2 (12:22→18:03)
[2021-05-02] MEDS: AMINO AC 3%/ELECTROLYTE/GLYCER 1,000 ML IV SCH (12:23)
[2021-05-02 15:00] VITALS: BP 145/84
[2021-05-02] MEDS ORDERED: KETOROLAC 15 MG/ML VIAL. IVP PRN (15:45)
[2021-05-02] MEDS ORDERED: ONDANSETRON PF 4 MG/2 ML VIAL. IVP PRN (15:45)
[2021-05-02 19:00] VITALS: BP 142/95
[2021-05-02] MEDS: FAMOTIDINE 20 MG/2 ML VIAL IVP SCH (21:54)
[2021-05-02 23:00] VITALS: BP 136/80
[2021-05-03] MEDS: AMINO AC 3%/ELECTROLYTE/GLYCER 1,000 ML IV SCH ×2 (00:45→13:40)
[2021-05-03] MEDS: PIPERACILLIN/TAZOBACTAM 3.375 GM in IV NORMAL SALINE 50ML 50 ML IV SCH ×3 (00:45→12:59)
[2021-05-03 03:00] VITALS: BP 118/69
[2021-05-03 07:00] VITALS: BP 134/94
[2021-05-03 07:20] LABS: HEMATOCRIT 42.6 % (39.0-53.0); HEMOGLOBIN 14.7 g/dL (13.0-17.5); RED BLOOD COUNT 4.99 x10^6/uL (4.30-5.70); RED CELL DISTRIBUTION WIDTH 12.6 % (11.5-14.5); WHITE BLOOD COUNT 8.7 x10^3/uL (4.0-11.0)
[2021-05-03 07:46] LABS: CALCIUM 8.8 mg/dL (8.5-10.1); CREATININE 1.1 mg/dL (0.7-1.3)
--- NOTE | 2021-05-03 10:57 | PDOC ---
[employer] PROGRESS NOTE Date of Service DOS: DATE: 05/03/21 TIME: 10:56 Chief Complaint Chief Complaint Diverticulitis with small abscess CT report as follows; 1. Interval increase in moderate inflammatory fat stranding identified about the proximal sigmoid colon likely acute diverticulitis again identified with small 2 cm air-fluid collection identified within the inflammation about the sigmoid colon could be phlegmon or developing abscess. Moderate thickened appearance of the wall of the sigmoid colon could be due to nondistention or underlying mucosal pathology such as neoplasm is not completely excluded. Follow-up colonoscopy is recommended after the acute episode has resolved. 2. Hepatic steatosis. 3. 4.5 mm nodule left lower lobe of the lung. Follow-up per Fleischner Society guidelines in 6-12 months. History of Present Illness History of Present Illness 05/03/2021 Patient seen and examined Discussed with RN Chart reviewed He is on IV ProcalAmine today Still n.p.o. Awaiting further GI input 05/02/2021 Patient seen and examined Discussed with RN Discussed with case management Chart reviewed I started IV ProcalAmine He is on IV Flagyl and IV Levaquin Discussed with his who is present and seems to be good support for him today Vitals/I&O Vitals/I&O: Vital Signs Date Time Temp Pulse Resp B/P (MAP) Pulse Ox O2 Delivery O2 Flow Rate FiO2 05/03/21 08:00 Room Air 05/03/21 07:00 97.7 62 18 134/94 (107) 96 97.7 Physical Exam General: Alert, Oriented X3, Cooperative Heart: Regular rate, Normal S1, Normal S2 Abdomen: Soft, Other (mild ttp lower abdomen ) Extremities: No clubbing, No cyanosis Skin: No rashes, No breakdown Labs Labs: Laboratory Tests Test 05/03/21 06:50 White Blood Count 8.7 x10^3/uL (4.0-11.0) Red Blood Count 4.99 x10^6/uL (4.30-5.70) Hemoglobin 14.7 g/dL (13.0-17.5) Hematocrit 42.6 % (39.0-53.0) Mean Corpuscular Volume 85 fL (79-100) Mean Corpuscular Hemoglobin 30 pg (25-35) Mean Corpuscular Hemoglobin Concent 35 g/dL (31-37) Red Cell Distribution Width 12.6 % (11.5-14.5) Platelet Count 222 x10^3/uL (140-400) Sodium Level 140 mmol/L (136-145) Potassium Level 4.0 mmol/L (3.5-5.1) Chloride Level 105 mmol/L (98-107) Carbon Dioxide Level 26 mmol/L (21-32) Anion Gap 9 (6-14) Blood Urea Nitrogen 14 mg/dL (8-26) Creatinine 1.1 mg/dL (0.7-1.3) Estimated GFR (Cockcroft-Gault) 70.0 Glucose Level 107 mg/dL (70-99) Calcium Level 8.8 mg/dL (8.5-10.1) Assessment and Plan Assessmemt and Plan Problems Medical Problems: (1) Diverticulitis Status: Acute Diverticulitis with small abscess CT report as follows; 1. Interval increase in moderate inflammatory fat stranding identified about the proximal sigmoid colon likely acute diverticulitis again identified with small 2 cm air-fluid collection identified within the inflammation about the sigmoid colon could be phlegmon or developing abscess. Moderate thickened appearance of the wall of the sigmoid colon could be due to nondistention or underlying mucosal pathology such as neoplasm is not completely excluded. Follow-up colonoscopy is recommended after the acute episode has resolved. 2. Hepatic steatosis. 3. 4.5 mm nodule left lower lobe of the lung. Follow-up per Fleischner Society guidelines in 6-12 months. Plan Await further GI input N.p.o. IV Levaquin IV Flagyl IV ProcalAmine Home meds DVT prophylaxis Trend imaging Full code Appreciate subspecialist input Comment Review of Relevant I have reviewed the following items keegan (where applicable) has been applied. Medications: Current Medications Medications (Trade) Dose Ordered Sig/Jaya Route PRN Reason Start Time Stop Time Status Last Admin Dose Admin Piperacillin Sod/ Tazobactam Sod 3.375 gm/Sodium Chloride 50 ml @ 100 mls/hr Q6HRS IV 05/02/21 12:00 05/03/21 06:07 Amino Acids/ Glycerin/ Electrolytes 1,000 ml @ 75 mls/hr [id number] IV 05/02/21 11:00 05/03/21 00:45 Justifications for Admission Other Justification DELORES SPRINGER III DO May 03, 2021 10:57
[2021-05-03 11:00] VITALS: BP 151/67
--- NOTE | 2021-05-03 13:21 | PDOC ---
PROGRESS NOTES Date of Service DATE: 05/03/21 TIME: 13:20 Subjective Subjective feeling better, less pain Objective Objective Vital Signs Date Time Temp Pulse Resp B/P (MAP) Pulse Ox O2 Delivery O2 Flow Rate FiO2 05/03/21 11:00 98.0 66 18 151/67 (95) 96 Room Air 98.0 Intake and Output 05/03/21 07:00 # Voids 3 Physical Exam Abdomen: Soft (minimally tender LLQ, no guarding) Heart: Normal S2 Extremities: No clubbing General: Alert Neuro: Normal speech Psych/Mental Status: Mental status NL Assessment Assessment Problems Medical Problems: (1) Diverticulitis Status: Acute Plan Plan of Care Clinically improved, WBC down, pain improved; continue with medical tx, no surgical plans Comment Review of Relevant I have reviewed the following items keegan (where applicable) has been applied. Labs Laboratory Tests Test 05/01/21 13:58 05/02/21 07:30 05/03/21 06:50 White Blood Count 15.2 x10^3/uL (4.0-11.0) 11.6 x10^3/uL (4.0-11.0) 8.7 x10^3/uL (4.0-11.0) Red Blood Count 5.08 x10^6/uL (4.30-5.70) 4.82 x10^6/uL (4.30-5.70) 4.99 x10^6/uL (4.30-5.70) Hemoglobin 15.3 g/dL (13.0-17.5) 14.5 g/dL (13.0-17.5) 14.7 g/dL (13.0-17.5) Hematocrit 43.0 % (39.0-53.0) 41.3 % (39.0-53.0) 42.6 % (39.0-53.0) Mean Corpuscular Volume 85 fL (79-100) 86 fL (79-100) 85 fL (79-100) Mean Corpuscular Hemoglobin 30 pg (25-35) 30 pg (25-35) 30 pg (25-35) Mean Corpuscular Hemoglobin Concent 36 g/dL (31-37) 35 g/dL (31-37) 35 g/dL (31-37) Red Cell Distribution Width 12.4 % (11.5-14.5) 12.5 % (11.5-14.5) 12.6 % (11.5-14.5) Platelet Count 230 x10^3/uL (140-400) 215 x10^3/uL (140-400) 222 x10^3/uL (140-400) Neutrophils (%) (Auto) 75 % (31-73) 75 % (31-73) Lymphocytes (%) (Auto) 15 % (24-48) 15 % (24-48) Monocytes (%) (Auto) 8 % (0-9) 10 % (0-9) Eosinophils (%) (Auto) 1 % (0-3) 0 % (0-3) Basophils (%) (Auto) 1 % (0-3) 1 % (0-3) Neutrophils # (Auto) 11.4 x10^3/uL (1.8-7.7) 8.7 x10^3/uL (1.8-7.7) Lymphocytes # (Auto) 2.3 x10^3/uL (1.0-4.8) 1.7 x10^3/uL (1.0-4.8) Monocytes # (Auto) 1.2 x10^3/uL (0.0-1.1) 1.2 x10^3/uL (0.0-1.1) Eosinophils # (Auto) 0.1 x10^3/uL (0.0-0.7) 0.0 x10^3/uL (0.0-0.7) Basophils # (Auto) 0.2 x10^3/uL (0.0-0.2) 0.1 x10^3/uL (0.0-0.2) Sodium Level 139 mmol/L (136-145) 140 mmol/L (136-145) 140 mmol/L (136-145) Potassium Level 3.8 mmol/L (3.5-5.1) 4.3 mmol/L (3.5-5.1) 4.0 mmol/L (3.5-5.1) Chloride Level 104 mmol/L (98-107) 104 mmol/L (98-107) 105 mmol/L (98-107) Carbon Dioxide Level 25 mmol/L (21-32) 28 mmol/L (21-32) 26 mmol/L (21-32) Anion Gap 10 (6-14) 8 (6-14) 9 (6-14) Blood Urea Nitrogen 19 mg/dL (8-26) 12 mg/dL (8-26) 14 mg/dL (8-26) Creatinine 1.1 mg/dL (0.7-1.3) 1.1 mg/dL (0.7-1.3) 1.1 mg/dL (0.7-1.3) Estimated GFR (Cockcroft-Gault) 70.0 70.0 70.0 BUN/Creatinine Ratio 17 (6-20) 11 (6-20) Glucose Level 110 mg/dL (70-99) 120 mg/dL (70-99) 107 mg/dL (70-99) Lactic Acid Level 1.3 mmol/L (0.4-2.0) Calcium Level 9.0 mg/dL (8.5-10.1) 8.6 mg/dL (8.5-10.1) 8.8 mg/dL (8.5-10.1) Total Bilirubin 0.6 mg/dL (0.2-1.0) 0.6 mg/dL (0.2-1.0) Aspartate Amino Transf (AST/SGOT) 18 U/L (15-37) 13 U/L (15-37) Alanine Aminotransferase (ALT/SGPT) 39 U/L (16-63) 30 U/L (16-63) Alkaline Phosphatase 74 U/L (46-116) 65 U/L (46-116) Total Protein 7.4 g/dL (6.4-8.2) 6.9 g/dL (6.4-8.2) Albumin 3.6 g/dL (3.4-5.0) 3.1 g/dL (3.4-5.0) Albumin/Globulin Ratio 0.9 (1.0-1.7) 0.8 (1.0-1.7) Lipase 74 U/L (73-393) Procalcitonin < 0.10 ng/mL (0.00-0.10) Laboratory Tests Test 05/03/21 06:50 White Blood Count 8.7 x10^3/uL (4.0-11.0) Red Blood Count 4.99 x10^6/uL (4.30-5.70) Hemoglobin 14.7 g/dL (13.0-17.5) Hematocrit 42.6 % (39.0-53.0) Mean Corpuscular Volume 85 fL (79-100) Mean Corpuscular Hemoglobin 30 pg (25-35) Mean Corpuscular Hemoglobin Concent 35 g/dL (31-37) Red Cell Distribution Width 12.6 % (11.5-14.5) Platelet Count 222 x10^3/uL (140-400) Sodium Level 140 mmol/L (136-145) Potassium Level 4.0 mmol/L (3.5-5.1) Chloride Level 105 mmol/L (98-107) Carbon Dioxide Level 26 mmol/L (21-32) Anion Gap 9 (6-14) Blood Urea Nitrogen 14 mg/dL (8-26) Creatinine 1.1 mg/dL (0.7-1.3) Estimated GFR (Cockcroft-Gault) 70.0 Glucose Level 107 mg/dL (70-99) Calcium Level 8.8 mg/dL (8.5-10.1) Microbiology 05/01/21 Blood Culture - Preliminary, Resulted NO GROWTH AFTER 1 DAY Medications Current Medications Piperacillin Sod/ Tazobactam Sod 4.5 gm/Sodium Chloride 100 ml @ 200 mls/hr 1X ONCE IV Last administered on 05/01/21at 16:54; Start 05/01/21 at 14:15; Stop 05/01/21 at 14:44; Status DC Vancomycin HCl (Vanco Per Pharmacy) 1 each 1X ONCE MC Last administered on 05/01/21at 13:45; Start 05/01/21 at 13:45; Stop 05/01/21 at 16:48; Status DC Morphine Sulfate (Morphine Sulfate) 4 mg PRN Q15MIN PRN IV/SQ PAIN GREATER THAN 3/10 Last administered on 05/01/21at 15:09; Start 05/01/21 at 13:45; Stop 05/02/21 at 11:59; Status DC Ondansetron HCl (Zofran) 4 mg 1X ONCE IVP Last administered on 05/01/21at 14:09; Start 05/01/21 at 14:15; Stop 05/01/21 at 14:16; Status DC Vancomycin HCl 2 gm/Sodium Chloride 500 ml @ 250 mls/hr 1X ONCE IV Last administered on 05/01/21at 16:55; Start 05/01/21 at 14:30; Stop 05/01/21 at 16:29; Status DC Sodium Chloride 1,000 ml @ 1,000 mls/hr 1X ONCE IV Last administered on 05/01/21at 14:07; Start 05/01/21 at 14:00; Stop 05/01/21 at 14:59; Status DC Ondansetron HCl (Zofran) 4 mg PRN Q8HRS PRN IV NAUSEA/VOMITING; Start 05/01/21 at 15:00; Stop 05/02/21 at 14:59; Status DC Morphine Sulfate (Morphine Sulfate) 4 mg PRN Q2HR PRN IV PAIN Last administered on 05/02/21at 10:14; Start 05/01/21 at 15:00; Stop 05/02/21 at 14:59; Status DC Sodium Chloride 1,000 ml @ 125 mls/hr 1X ONCE IV Last administered on 05/01/21at 15:00; Start 05/01/21 at 15:00; Stop 05/01/21 at 22:59; Status DC Famotidine (Pepcid Vial) 20 mg QHS IVP Last administered on 05/02/21at 21:54; Start 05/01/21 at 21:00 Iohexol (Omnipaque 240 Mg/ml) 30 ml 1X ONCE PO Last administered on 05/01/21at 16:30; Start 05/01/21 at 16:30; Stop 05/01/21 at 16:31; Status DC Iohexol (Omnipaque 300 Mg/ml) 75 ml 1X ONCE IV Last administered on 05/01/21at 17:30; Start 05/01/21 at 16:30; Stop 05/01/21 at 16:31; Status DC Info (CONTRAST GIVEN -- Rx MONITORING) 1 each PRN DAILY PRN MC SEE COMMENTS; Start 05/01/21 at 16:45; Stop 05/03/21 at 16:44 Metronidazole (Flagyl) 500 mg Q8HRS PO Last administered on 05/02/21at 06:19; Start 05/01/21 at 22:00; Stop 05/02/21 at 09:25; Status DC Levofloxacin/ Dextrose 100 ml @ 100 mls/hr Q24H IV Last administered on at 21:08; Start 05/01/21 at 21:00; Stop 05/02/21 at 09:25; Status DC Piperacillin Sod/ Tazobactam Sod 3.375 gm/Sodium Chloride 50 ml @ 100 mls/hr Q6HRS IV Last administered on 05/03/21at 12:59; Start 05/02/21 at 12:00 Amino Acids/ Glycerin/ Electrolytes 1,000 ml @ 75 mls/hr [id number] IV Last administered on 05/03/21at 00:45; Start 05/02/21 at 11:00 Ketorolac Tromethamine (Toradol 15mg Vial) 15 mg PRN Q6HRS PRN IVP INFLAMMATION; Start 05/02/21 at 15:45; Stop 05/07/21 at 15:44 Ondansetron HCl (Zofran) 4 mg PRN Q6HRS PRN IVP NAUSEA/VOMITING; Start 05/02/21 at 15:45 Active Scripts Active Cipro (Ciprofloxacin Hcl) 500 Mg Tablet 1 Tab PO BID 7 Days Flagyl (Metronidazole) 500 Mg Tablet 1 Tab PO TID 7 Days Hydrocodone-Acetamin 5-325 mg (Hydrocodone/Acetaminophen) 1 Each Tablet 1 Each PO Q6HRS Diclofenac Sodium 50 Mg Tablet.dr 1 Tab PO BID Medrol (Methylprednisolone) 4 Mg Tab.ds.pk 1 Pkg PO UD Cyclobenzaprine Hcl 10 Mg Tablet 1 Tab PO TID Vitals/I & O Vital Sign - Last 24 Hours 05/02/21 05/02/21 05/02/21 05/02/21 15:00 19:00 20:26 23:00 Temp 98.3 98.6 97.2 98.3 98.6 97.2 Pulse 61 60 81 Resp 18 18 20 B/P (MAP) 145/84 (104) 142/95 (111) 136/80 (98) Pulse Ox 97 97 98 O2 Delivery Room Air Room Air Room Air Room Air 05/03/21 05/03/21 05/03/21 05/03/21 03:00 07:00 08:00 11:00 Temp 98.2 97.7 98.0 98.2 97.7 98.0 Pulse 63 62 66 Resp 18 18 18 B/P (MAP) 118/69 (85) 134/94 (107) 151/67 (95) Pulse Ox 92 96 96 O2 Delivery Room Air Room Air Room Air Room Air Justifications for Admission Other Justification JOZEF ALFRED MD May 03, 2021 13:21
[2021-05-03 15:00] VITALS: BP 144/92
[2021-05-03] MEDS: metroNIDAZOLE 500 MG TABLET PO SCH ×2 (16:56→21:08)
[2021-05-03 19:00] VITALS: BP 164/111
[2021-05-03] MEDS: FAMOTIDINE 20 MG/2 ML VIAL IVP SCH (21:00)
[2021-05-03 23:00] VITALS: BP 147/101
[2021-05-04] VITALS (7 sets, daily range): BP systolic 127–177; BP diastolic 93–117
[2021-05-04] MEDS: metroNIDAZOLE 500 MG TABLET PO SCH (05:53)
--- NOTE | 2021-05-04 09:56 | PDOC ---
PROGRESS NOTES Date of Service DATE: 05/04/21 TIME: 09:55 Subjective Subjective denies abdominal pain, reports headache/dizzy after getting pills Objective Objective Vital Signs Date Time Temp Pulse Resp B/P (MAP) Pulse Ox O2 Delivery O2 Flow Rate FiO2 05/04/21 08:00 Room Air 05/04/21 07:00 97.7 96 18 130/96 (107) 98 97.7 Intake and Output 05/04/21 07:00 Intake Total 400 ml Balance 400 ml Intake Oral 400 ml # Voids 6 Physical Exam Abdomen: Soft, No tenderness Heart: Regular rate Extremities: No clubbing, No cyanosis General: Alert Neuro: Normal speech Psych/Mental Status: Mental status NL Assessment Assessment Problems Medical Problems: (1) Diverticulitis Status: Acute Plan Plan of Care No surgical recs, continue med management Comment Review of Relevant I have reviewed the following items keegan (where applicable) has been applied. Labs Laboratory Tests Test 05/03/21 06:50 05/04/21 09:23 White Blood Count 8.7 x10^3/uL (4.0-11.0) Red Blood Count 4.99 x10^6/uL (4.30-5.70) Hemoglobin 14.7 g/dL (13.0-17.5) Hematocrit 42.6 % (39.0-53.0) Mean Corpuscular Volume 85 fL (79-100) Mean Corpuscular Hemoglobin 30 pg (25-35) Mean Corpuscular Hemoglobin Concent 35 g/dL (31-37) Red Cell Distribution Width 12.6 % (11.5-14.5) Platelet Count 222 x10^3/uL (140-400) Sodium Level 140 mmol/L (136-145) Potassium Level 4.0 mmol/L (3.5-5.1) Chloride Level 105 mmol/L (98-107) Carbon Dioxide Level 26 mmol/L (21-32) Anion Gap 9 (6-14) Blood Urea Nitrogen 14 mg/dL (8-26) Creatinine 1.1 mg/dL (0.7-1.3) Estimated GFR (Cockcroft-Gault) 70.0 Glucose Level 107 mg/dL (70-99) Calcium Level 8.8 mg/dL (8.5-10.1) Glucose (Fingerstick) 109 mg/dL (70-99) Laboratory Tests Test 05/04/21 09:23 Glucose (Fingerstick) 109 mg/dL (70-99) Microbiology 05/01/21 Blood Culture - Preliminary, Resulted NO GROWTH AFTER 2 DAYS Medications Current Medications Piperacillin Sod/ Tazobactam Sod 4.5 gm/Sodium Chloride 100 ml @ 200 mls/hr 1X ONCE IV Last administered on 05/01/21at 16:54; Start 05/01/21 at 14:15; Stop 05/01/21 at 14:44; Status DC Vancomycin HCl (Vanco Per Pharmacy) 1 each 1X ONCE MC Last administered on 05/01/21at 13:45; Start 05/01/21 at 13:45; Stop 05/01/21 at 16:48; Status DC Morphine Sulfate (Morphine Sulfate) 4 mg PRN Q15MIN PRN IV/SQ PAIN GREATER THAN 3/10 Last administered on 05/01/21at 15:09; Start 05/01/21 at 13:45; Stop 05/02/21 at 11:59; Status DC Ondansetron HCl (Zofran) 4 mg 1X ONCE IVP Last administered on 05/01/21at 14:09; Start 05/01/21 at 14:15; Stop 05/01/21 at 14:16; Status DC Vancomycin HCl 2 gm/Sodium Chloride 500 ml @ 250 mls/hr 1X ONCE IV Last administered on 05/01/21at 16:55; Start 05/01/21 at 14:30; Stop 05/01/21 at 16:29; Status DC Sodium Chloride 1,000 ml @ 1,000 mls/hr 1X ONCE IV Last administered on 05/01/21at 14:07; Start 05/01/21 at 14:00; Stop 05/01/21 at 14:59; Status DC Ondansetron HCl (Zofran) 4 mg PRN Q8HRS PRN IV NAUSEA/VOMITING; Start 05/01/21 at 15:00; Stop 05/02/21 at 14:59; Status DC Morphine Sulfate (Morphine Sulfate) 4 mg PRN Q2HR PRN IV PAIN Last administered on 05/02/21at 10:14; Start 05/01/21 at 15:00; Stop 05/02/21 at 14:59; Status DC Sodium Chloride 1,000 ml @ 125 mls/hr 1X ONCE IV Last administered on 05/01/21at 15:00; Start 05/01/21 at 15:00; Stop 05/01/21 at 22:59; Status DC Famotidine (Pepcid Vial) 20 mg QHS IVP Last administered on 05/02/21at 21:54; Start 05/01/21 at 21:00 Iohexol (Omnipaque 240 Mg/ml) 30 ml 1X ONCE PO Last administered on 05/01/21at 16:30; Start 05/01/21 at 16:30; Stop 05/01/21 at 16:31; Status DC Iohexol (Omnipaque 300 Mg/ml) 75 ml 1X ONCE IV Last administered on 05/01/21at 17:30; Start 05/01/21 at 16:30; Stop 05/01/21 at 16:31; Status DC Info (CONTRAST GIVEN -- Rx MONITORING) 1 each PRN DAILY PRN MC SEE COMMENTS; Start 05/01/21 at 16:45; Stop 05/03/21 at 16:44; Status DC Metronidazole (Flagyl) 500 mg Q8HRS PO Last administered on 05/02/21at 06:19; Start 05/01/21 at 22:00; Stop 05/02/21 at 09:25; Status DC Levofloxacin/ Dextrose 100 ml @ 100 mls/hr Q24H IV Last administered on 05/01/21at 21:08; Start 05/01/21 at 21:00; Stop 05/02/21 at 09:25; Status DC Piperacillin Sod/ Tazobactam Sod 3.375 gm/Sodium Chloride 50 ml @ 100 mls/hr Q6HRS IV Last administered on 05/03/21at 12:59; Start 05/02/21 at 12:00; Stop 05/03/21 at 16:14; Status DC Amino Acids/ Glycerin/ Electrolytes 1,000 ml @ 75 mls/hr [id number] IV Last administered on 05/03/21at 00:45; Start 05/02/21 at 11:00; Stop 05/03/21 at 16:14; Status DC Ketorolac Tromethamine (Toradol 15mg Vial) 15 mg PRN Q6HRS PRN IVP INFLAMMATION; Start 05/02/21 at 15:45; Stop 05/07/21 at 15:44 Ondansetron HCl (Zofran) 4 mg PRN Q6HRS PRN IVP NAUSEA/VOMITING; Start 05/02/21 at 15:45 Metronidazole (Flagyl) 500 mg Q8HRS PO Last administered on 05/04/21at 05:53; Start 05/03/21 at 16:15 Levofloxacin (Levaquin) 500 mg DAILY ONCE PO ; Start 05/04/21 at 09:00; Stop 05/03/21 at 16:17; Status DC Levofloxacin (Levaquin) 500 mg DAILY06 PO Last administered on 05/04/21at 05:53; Start 05/04/21 at 06:00 Active Scripts Active Cipro (Ciprofloxacin Hcl) 500 Mg Tablet 1 Tab PO BID 7 Days Flagyl (Metronidazole) 500 Mg Tablet 1 Tab PO TID 7 Days Hydrocodone-Acetamin 5-325 mg (Hydrocodone/Acetaminophen) 1 Each Tablet 1 Each PO Q6HRS Diclofenac Sodium 50 Mg Tablet.dr 1 Tab PO BID Medrol (Methylprednisolone) 4 Mg Tab.ds.pk 1 Pkg PO UD Cyclobenzaprine Hcl 10 Mg Tablet 1 Tab PO TID Vitals/I & O Vital Sign - Last 24 Hours 05/03/21 05/03/21 05/03/21 05/03/21 11:00 15:00 19:00 20:00 Temp 98.0 98.0 97.9 98.0 98.0 97.9 Pulse 66 65 66 Resp 18 18 18 B/P (MAP) 151/67 (95) 144/92 (109) 164/111 (128) Pulse Ox 96 97 98 O2 Delivery Room Air Room Air Room Air Room Air 05/03/21 05/04/21 05/04/21 23:00 07:00 08:00 Temp 98.1 97.7 98.1 97.7 Pulse 79 96 Resp 18 18 B/P (MAP) 147/101 (116) 130/96 (107) Pulse Ox 96 98 O2 Delivery Room Air Room Air Room Air Intake and Output 05/03/21 05/03/21 05/04/21 15:00 23:00 07:00 Intake Total 200 ml 200 ml Balance 200 ml 200 ml Justifications for Admission Other Justification JOZEF ALFRED MD May 04, 2021 09:56
--- NOTE | 2021-05-04 10:32 | PDOC ---
PROGRESS NOTES Date of Service: DATE: 05/04/21 TIME: 10:23 Chief Complaint Chief Complaint Diverticulitis with small abscess CT report as follows; 1. Interval increase in moderate inflammatory fat stranding identified about the proximal sigmoid colon likely acute diverticulitis again identified with small 2 cm air-fluid collection identified within the inflammation about the sigmoid colon could be phlegmon or developing abscess. Moderate thickened appearance of the wall of the sigmoid colon could be due to nondistention or underlying mucosal pathology such as neoplasm is not completely excluded. Follow-up colonoscopy is recommended after the acute episode has resolved. 2. Hepatic steatosis. 3. 4.5 mm nodule left lower lobe of the lung. Follow-up per Fleischner Society guidelines in 6-12 months. History of Present Illness History of Present Illness 05/04/2021 felt fine earlier until he took po levaquin now on hold, then felt light-headed R Shawna stated he " nearly passed out, now dry heaving in room pt alert in mild distress cv rrr chest cta, abd soft, afebrile Patient seen and examined d/w in room Discussed with RN Chart reviewed He is on IV ProcalAmine yesterday, iv came out on clears, now npo Awaiting further GI input ON ADMIT interval increase in moderate inflammatory fat stranding identified about the proximal sigmoid colon likely acute diverticulitis with small 2 cm air-fluid collection identified within the inflammation about the sigmoid colon could developing abscess. Moderate thickened appearance of the wall of the sigmoid colon. Urinary bladder is mildly distended. I would error on censervative side, restart IV , IV PROCALAMINE at 100 cc/hr, CBC, COMP STAT EKG, TROPONIN I, MOVE TO CVC BED, REPEAT CT ABD/ PELVIS stat , CRP, BLOOD CULTURES, START IV ZOSYN, CONSULT ID , iv flagyl 38 Min pt exam, chart review, > 50% of time spent with exam, chart review, pt care coordination 05/03/2021 Patient seen and examined Discussed with RN Chart reviewed He is on IV ProcalAmine today Still n.p.o. Awaiting further GI input 05/02/2021 Patient seen and examined Discussed with RN Discussed with case management Chart reviewed I started IV ProcalAmine He is on IV Flagyl and IV Levaquin Discussed with his who is present and seems to be good support for him today Vitals Vitals Vital Signs Date Time Temp Pulse Resp B/P (MAP) Pulse Ox O2 Delivery O2 Flow Rate FiO2 05/04/21 08:00 Room Air 05/04/21 07:00 97.7 96 18 130/96 (107) 98 97.7 Physical Exam General: Alert Heart: Regular rate Abdomen: Soft, No tenderness Extremities: No clubbing, No cyanosis Skin: No rashes, No breakdown Labs LABS PATIENT: TAMIA HOWELL ACCOUNT: [id number] : 1970 LOCATION: [address] [place] [address] AGE: 51 SEX: M EXAM STATUS: ADM IN ORD. PHYSICIAN: DIDI HAMILTON REASON: diverticulitis - PAIN WORSE PROCEDURE: CT ABD PELV W/ORAL&IV CONTRAST Examination: CT of the abdomen pelvis with oral and IV contrast HISTORY: History of diverticulitis, worsening pain COMPARISON: 04/29/2021 TECHNIQUE: Axial CT images of the CT of the abdomen pelvis were performed with oral and IV contrast. Coronal and sagittal reformats are performed Exposure: One or more of the following individualized dose reduction techniques were utilized for this examination: 1. Automated exposure control 2. A djustment of the mA and/or kV according to patient size 3. Use of iterative reconstruction technique FINDINGS: 4.5 mm nodule left lower lobe of the lung. Diffuse decreased attenuation noted in the liver likely hepatic steatosis. The spleen, adrenals grossly appears unremarkable. The catheters mildly distended. The stomach is mildly distended with visualized pancreas grossly appears unremarkable. The small bowel is nondilated. Feces and gas noted in the colon. There is interval increase in moderate inflammatory fat stranding identified about the proximal sigmoid colon likely acute diverticulitis with small 2 cm air-fluid collection identified within the inflammation about the sigmoid colon could be phlegmon or developing abscess. Moderate thickened appearance of the wall of the sigmoid colon. Urinary bladder is mildly distended. The bilateral kidneys enhance symmetrically. Mild degenerative changes lumbar spine. IMPRESSION: 1. Interval increase in moderate inflammatory fat stranding identified about th e proximal sigmoid colon likely acute diverticulitis again identified with small 2 cm air-fluid collection identified within the inflammation about the sigmoid colon could be phlegmon or developing abscess. Moderate thickened appearance of the wall of the sigmoid colon could be due to nondistention or underlying mucosal pathology such as neoplasm is not completely excluded. Follow-up colonoscopy is recommended after the acute episode has resolved. 2. Hepatic steatosis. 3. 4.5 mm nodule left lower lobe of the lung. Follow-up per Fleischner Society guidelines in 6-12 months. Electronically signed by: Surinder Webb MD (05/01/2021 6:07 PM) [id number] DICTATED and SIGNED BY: SURINDER WEBB MD DATE: 05/01/21 [id number] Laboratory Tests Test 05/04/21 09:23 Glucose (Fingerstick) 109 mg/dL (70-99) Assessment and Plan Assessmemt and Plan Problems Medical Problems: (1) Diverticulitis Status: Acute Comment Review of Relevant I have reviewed the following items keegan (where applicable) has been applied. Labs Laboratory Tests Test 05/03/21 06:50 05/04/21 09:23 White Blood Count 8.7 x10^3/uL (4.0-11.0) Red Blood Count 4.99 x10^6/uL (4.30-5.70) Hemoglobin 14.7 g/dL (13.0-17.5) Hematocrit 42.6 % (39.0-53.0) Mean Corpuscular Volume 85 fL (79-100) Mean Corpuscular Hemoglobin 30 pg (25-35) Mean Corpuscular Hemoglobin Concent 35 g/dL (31-37) Red Cell Distribution Width 12.6 % (11.5-14.5) Platelet Count 222 x10^3/uL (140-400) Sodium Level 140 mmol/L (136-145) Potassium Level 4.0 mmol/L (3.5-5.1) Chloride Level 105 mmol/L (98-107) Carbon Dioxide Level 26 mmol/L (21-32) Anion Gap 9 (6-14) Blood Urea Nitrogen 14 mg/dL (8-26) Creatinine 1.1 mg/dL (0.7-1.3) Estimated GFR (Cockcroft-Gault) 70.0 Glucose Level 107 mg/dL (70-99) Calcium Level 8.8 mg/dL (8.5-10.1) Glucose (Fingerstick) 109 mg/dL (70-99) Laboratory Tests Test 05/04/21 09:23 Glucose (Fingerstick) 109 mg/dL (70-99) Microbiology 05/01/21 Blood Culture - Preliminary, Resulted NO GROWTH AFTER 2 DAYS Medications Current Medications Piperacillin Sod/ Tazobactam Sod 4.5 gm/Sodium Chloride 100 ml @ 200 mls/hr 1X ONCE IV Last administered on 05/01/21at 16:54; Start 05/01/21 at 14:15; Stop 05/01/21 at 14:44; Status DC Vancomycin HCl (Vanco Per Pharmacy) 1 each 1X ONCE MC Last administered on 05/01/21at 13:45; Start 05/01/21 at 13:45; Stop 05/01/21 at 16:48; Status DC Morphine Sulfate (Morphine Sulfate) 4 mg PRN Q15MIN PRN IV/SQ PAIN GREATER THAN 3/10 Last administered on 05/01/21at 15:09; Start 05/01/21 at 13:45; Stop 05/02/21 at 11:59; Status DC Ondansetron HCl (Zofran) 4 mg 1X ONCE IVP Last administered on 05/01/21at 14:09; Start 05/01/21 at 14:15; Stop 05/01/21 at 14:16; Status DC Vancomycin HCl 2 gm/Sodium Chloride 500 ml @ 250 mls/hr 1X ONCE IV Last administered on 05/01/21at 16:55; Start 05/01/21 at 14:30; Stop 05/01/21 at 16:29; Status DC Sodium Chloride 1,000 ml @ 1,000 mls/hr 1X ONCE IV Last administered on 05/01/21at 14:07; Start 05/01/21 at 14:00; Stop 05/01/21 at 14:59; Status DC Ondansetron HCl (Zofran) 4 mg PRN Q8HRS PRN IV NAUSEA/VOMITING; Start 05/01/21 at 15:00; Stop 05/02/21 at 14:59; Status DC Morphine Sulfate (Morphine Sulfate) 4 mg PRN Q2HR PRN IV PAIN Last administered on 05/02/21at 10:14; Start 05/01/21 at 15:00; Stop 05/02/21 at 14:59; Status DC Sodium Chloride 1,000 ml @ 125 mls/hr 1X ONCE IV Last administered on 05/01/21at 15:00; Start 05/01/21 at 15:00; Stop 05/01/21 at 22:59; Status DC Famotidine (Pepcid Vial) 20 mg QHS IVP Last administered on 05/02/21at 21:54; Start 05/01/21 at 21:00 Iohexol (Omnipaque 240 Mg/ml) 30 ml 1X ONCE PO Last administered on 05/01/21at 16:30; Start 05/01/21 at 16:30; Stop 05/01/21 at 16:31; Status DC Iohexol (Omnipaque 300 Mg/ml) 75 ml 1X ONCE IV Last administered on 05/01/21at 17:30; Start 05/01/21 at 16:30; Stop 05/01/21 at 16:31; Status DC Info (CONTRAST GIVEN -- Rx MONITORING) 1 each PRN DAILY PRN MC SEE COMMENTS; Start 05/01/21 at 16:45; Stop 05/03/21 at 16:44; Status DC Metronidazole (Flagyl) 500 mg Q8HRS PO Last administered on 05/02/21at 06:19; Start 05/01/21 at 22:00; Stop 05/02/21 at 09:25; Status DC Levofloxacin/ Dextrose 100 ml @ 100 mls/hr Q24H IV Last administered on 05/01/21at 21:08; Start 05/01/21 at 21:00; Stop 05/02/21 at 09:25; Status DC Piperacillin Sod/ Tazobactam Sod 3.375 gm/Sodium Chloride 50 ml @ 100 mls/hr Q6HRS IV Last administered on 05/03/21at 12:59; Start 05/02/21 at 12:00; Stop 05/03/21 at 16:14; Status DC Amino Acids/ Glycerin/ Electrolytes 1,000 ml @ 75 mls/hr [id number] IV Last administered on 05/03/21at 00:45; Start 05/02/21 at 11:00; Stop 05/03/21 at 16:14; Status DC Ketorolac Tromethamine (Toradol 15mg Vial) 15 mg PRN Q6HRS PRN IVP INFLAMMATION; Start 05/02/21 at 15:45; Stop 05/07/21 at 15:44 Ondansetron HCl (Zofran) 4 mg PRN Q6HRS PRN IVP NAUSEA/VOMITING; Start 05/02/21 at 15:45 Metronidazole (Flagyl) 500 mg Q8HRS PO Last administered on 05/04/21at 05:53; Start 05/03/21 at 16:15 Levofloxacin (Levaquin) 500 mg DAILY ONCE PO ; Start 05/04/21 at 09:00; Stop 05/03/21 at 16:17; Status DC Levofloxacin (Levaquin) 500 mg DAILY06 PO Last administered on 05/04/21at 05:53; Start 05/04/21 at 06:00; Stop 05/04/21 at 10:02; Status DC Active Scripts Active Cipro (Ciprofloxacin Hcl) 500 Mg Tablet 1 Tab PO BID 7 Days Flagyl (Metronidazole) 500 Mg Tablet 1 Tab PO TID 7 Days Hydrocodone-Acetamin 5-325 mg (Hydrocodone/Acetaminophen) 1 Each Tablet 1 Each PO Q6HRS Diclofenac Sodium 50 Mg Tablet.dr 1 Tab PO BID Medrol (Methylprednisolone) 4 Mg Tab.ds.pk 1 Pkg PO UD Cyclobenzaprine Hcl 10 Mg Tablet 1 Tab PO TID Vitals/I & O Vital Sign - Last 24 Hours 05/03/21 05/03/21 05/03/21 05/03/21 11:00 15:00 19:00 20:00 Temp 98.0 98.0 97.9 98.0 98.0 97.9 Pulse 66 65 66 Resp 18 18 18 B/P (MAP) 151/67 (95) 144/92 (109) 164/111 (128) Pulse Ox 96 97 98 O2 Delivery Room Air Room Air Room Air Room Air 05/03/21 05/04/21 05/04/21 23:00 07:00 08:00 Temp 98.1 97.7 98.1 97.7 Pulse 79 96 Resp 18 18 B/P (MAP) 147/101 (116) 130/96 (107) Pulse Ox 96 98 O2 Delivery Room Air Room Air Room Air Intake and Output 05/03/21 05/03/21 05/04/21 15:00 23:00 07:00 Intake Total 200 ml 200 ml Balance 200 ml 200 ml Justicifation of Admission Dx: Justifications for Admission: Justification of Admission Dx: Yes LOUIE STOREY MD May 04, 2021 10:32
[2021-05-04] MEDS: AMINO AC 3%/ELECTROLYTE/GLYCER 1,000 ML IV SCH ×2 (10:45→19:51)
[2021-05-04] MEDS ORDERED: IV NORMAL SALINE 1000ML BAG 1,000 ML IV ONE (11:00)
--- NOTE | 2021-05-04 11:01 | PDOC ---
Infectious Disease Note Vital Signs: Vital Signs Vital Signs Date Time Temp Pulse Resp B/P (MAP) Pulse Ox O2 Delivery O2 Flow Rate FiO2 05/04/21 08:00 Room Air 05/04/21 07:00 97.7 96 18 130/96 (107) 98 97.7 Medications: Inpatient Meds: Medications reviewed. Labs: Lab Laboratory Tests Test 05/04/21 09:23 Glucose (Fingerstick) 109 mg/dL (70-99) Objective: Assessment: Patient seen and examined Consult dictated Plan: Plan of Care Continue Zosyn and Flagyl Follow-up repeat CT Follow-up labs from this a.m. Continue supportive care Discussed with at bedside Thank you MAYITO RAMIREZ MD May 04, 2021 11:01
[2021-05-04 11:40] LABS: BASO # 0.1 x10^3/uL (0.0-0.2); BASO % 1 % (0-3); EOS % 0 % (0-3); HEMATOCRIT 48.3 % (39.0-53.0); HEMOGLOBIN 16.8 g/dL (13.0-17.5); LYMPH % 17 % (24-48); MEAN CORPUSCULAR HEMOGLOBIN 29 pg (25-35); MEAN CORPUSCULAR HGB CONC 35 g/dL (31-37); MEAN CORPUSCULAR VOLUME 85 fL (79-100); MONO % 9 % (0-9); NEUT % 74 % (31-73); PLATELET COUNT 297 x10^3/uL (140-400); RED BLOOD COUNT 5.71 x10^6/uL (4.30-5.70); RED CELL DISTRIBUTION WIDTH 12.5 % (11.5-14.5); WHITE BLOOD COUNT 12.2 x10^3/uL (4.0-11.0)
[2021-05-04 11:46] LABS: CALCIUM 9.8 mg/dL (8.5-10.1); GFR 78.2; POTASSIUM 3.9 mmol/L (3.5-5.1)
[2021-05-04 11:51] LABS: ALBUMIN 3.9 g/dL (3.4-5.0); TOTAL BILIRUBIN 0.6 mg/dL (0.2-1.0); TOTAL PROTEIN 7.9 g/dL (6.4-8.2)
[2021-05-04] MEDS: PIPERACILLIN/TAZOBACTAM 3.375 GM in IV NORMAL SALINE 50ML 50 ML IV SCH ×2 (12:00→17:02)
--- NOTE | 2021-05-04 12:04 | RAD ---
Exam: CT abdomen/pelvis without intravenous contrast Indication: Abdominal abscess Comparison: CT abdomen pelvis 05/01/2021 Technique: Helical CT imaging performed of the abdomen and pelvis without the use of intravenous cont rast. Sagittal and coronal reformats were obtained. One or more of the following individualized dose reduction techniques were utilized for this examinat ion: 1. Automated exposure control 2. Adjustment of the mA and/or kV according to patient size 3. Use of iterative reconstruction technique. Findings: Inherently limited evaluation without intravenous contrast. Lower chest: There is calcified granuloma in the right lung base. The heart is normal in size. Liver: The liver is low in attenuation. Gallbladder/Biliary Tree: Unremarkable.. Pancreas: Normal. Spleen: Normal. Adrenal Glands: Normal. Kidneys/Ureters/Bladder: Kidneys are normal in size. There is a peripelvic cysts in the inferior left renal pole. No hydronephrosis or nephrolithiasis. Ureters and bladder are normal. Reproductive Organs: Prostate gland is normal. Stomach, small bowel, and colon: Sigmoid diverticulitis has mildly improved with slightly decreased e xtent of wall thickening. A small complex gas and fluid collection to the left the sigmoid colon is o verall unchanged in size measuring approximately 1.6 x 1.2 cm but no longer contains gas. A few other extraluminal foci of gas have resolved. There is no new fluid collection. There is persistent mild f ocal wall thickening of sigmoid colon and surrounding fat stranding. Stomach, small bowel, and append ix are normal. Vasculature: Abdominal aorta is normal in caliber. Lymph Nodes: Probable abnormal enlarged lymph node along the sigmoid colon. Peritoneum and retroperitoneum: No free fluid or free air. Bones: No acute osseous abnormality. Impression: 1. Mildly improved acute sigmoid diverticulitis. The small complex collection to the left of the sig moid colon persists but no longer contains gas. This is too small to drain. No new fluid collection. Recommend colonoscopy after treatment to exclude underlying mass. 2. Hepatic steatosis. Electronically signed by: Odalis Drew MD (05/04/2021 12:02 PM) [id number]
--- NOTE | 2021-05-04 12:37 | RAD ---
EXAM: AP View of the chest DATE: 05/04/2021 10:40 AM INDICATION: Reason: near syncope 442 / Spl. Instructions: / History: COMPARISON: No Prior FINDINGS: The heart is not enlarged. Mediastinal and hilar contours are normal. No focal parenchymal airspace opacity. Calcified granuloma right lower lung. No pleural effusion or pneumothorax. IMPRESSION: 1. No radiographic evidence for acute cardiopulmonary process. Electronically signed by: Jose Alejandro Mills MD (05/04/2021 12:34 PM) ORACIO
--- NOTE | 2021-05-04 12:39 | PDOC ---
G I PROGRESS NOTE Reason for Follow-up Diverticulitis Subjective Reaction to levaquin today Physical Exam Lungs clear CV S1 S2 ABD +BS, soft, nontender Review of Relevant I have reviewed the following items keegan (where applicable) has been applied. Labs Laboratory Tests Test 05/03/21 06:50 05/04/21 09:23 05/04/21 11:10 White Blood Count 8.7 x10^3/uL (4.0-11.0) 12.2 x10^3/uL (4.0-11.0) Red Blood Count 4.99 x10^6/uL (4.30-5.70) 5.71 x10^6/uL (4.30-5.70) Hemoglobin 14.7 g/dL (13.0-17.5) 16.8 g/dL (13.0-17.5) Hematocrit 42.6 % (39.0-53.0) 48.3 % (39.0-53.0) Mean Corpuscular Volume 85 fL (79-100) 85 fL (79-100) Mean Corpuscular Hemoglobin 30 pg (25-35) 29 pg (25-35) Mean Corpuscular Hemoglobin Concent 35 g/dL (31-37) 35 g/dL (31-37) Red Cell Distribution Width 12.6 % (11.5-14.5) 12.5 % (11.5-14.5) Platelet Count 222 x10^3/uL (140-400) 297 x10^3/uL (140-400) Sodium Level 140 mmol/L (136-145) 139 mmol/L (136-145) Potassium Level 4.0 mmol/L (3.5-5.1) 3.9 mmol/L (3.5-5.1) Chloride Level 105 mmol/L (98-107) 101 mmol/L (98-107) Carbon Dioxide Level 26 mmol/L (21-32) 19 mmol/L (21-32) Anion Gap 9 (6-14) 19 (6-14) Blood Urea Nitrogen 14 mg/dL (8-26) 21 mg/dL (8-26) Creatinine 1.1 mg/dL (0.7-1.3) 1.0 mg/dL (0.7-1.3) Estimated GFR (Cockcroft-Gault) 70.0 78.2 Glucose Level 107 mg/dL (70-99) 111 mg/dL (70-99) Calcium Level 8.8 mg/dL (8.5-10.1) 9.8 mg/dL (8.5-10.1) Glucose (Fingerstick) 109 mg/dL (70-99) Neutrophils (%) (Auto) 74 % (31-73) Lymphocytes (%) (Auto) 17 % (24-48) Monocytes (%) (Auto) 9 % (0-9) Eosinophils (%) (Auto) 0 % (0-3) Basophils (%) (Auto) 1 % (0-3) Neutrophils # (Auto) 9.0 x10^3/uL (1.8-7.7) Lymphocytes # (Auto) 2.0 x10^3/uL (1.0-4.8) Monocytes # (Auto) 1.0 x10^3/uL (0.0-1.1) Eosinophils # (Auto) 0.0 x10^3/uL (0.0-0.7) Basophils # (Auto) 0.1 x10^3/uL (0.0-0.2) BUN/Creatinine Ratio 21 (6-20) Total Bilirubin 0.6 mg/dL (0.2-1.0) Aspartate Amino Transf (AST/SGOT) 28 U/L (15-37) Alanine Aminotransferase (ALT/SGPT) 52 U/L (16-63) Alkaline Phosphatase 82 U/L (46-116) Troponin I Quantitative < 0.017 ng/mL (0.000-0.055) C-Reactive Protein, Quantitative 35.1 mg/L (0-3.3) Total Protein 7.9 g/dL (6.4-8.2) Albumin 3.9 g/dL (3.4-5.0) Albumin/Globulin Ratio 1.0 (1.0-1.7) Procalcitonin < 0.10 ng/mL (0.00-0.10) Laboratory Tests Test 05/04/21 09:23 05/04/21 11:10 Glucose (Fingerstick) 109 mg/dL (70-99) White Blood Count 12.2 x10^3/uL (4.0-11.0) Red Blood Count 5.71 x10^6/uL (4.30-5.70) Hemoglobin 16.8 g/dL (13.0-17.5) Hematocrit 48.3 % (39.0-53.0) Mean Corpuscular Volume 85 fL (79-100) Mean Corpuscular Hemoglobin 29 pg (25-35) Mean Corpuscular Hemoglobin Concent 35 g/dL (31-37) Red Cell Distribution Width 12.5 % (11.5-14.5) Platelet Count 297 x10^3/uL (140-400) Neutrophils (%) (Auto) 74 % (31-73) Lymphocytes (%) (Auto) 17 % (24-48) Monocytes (%) (Auto) 9 % (0-9) Eosinophils (%) (Auto) 0 % (0-3) Basophils (%) (Auto) 1 % (0-3) Neutrophils # (Auto) 9.0 x10^3/uL (1.8-7.7) Lymphocytes # (Auto) 2.0 x10^3/uL (1.0-4.8) Monocytes # (Auto) 1.0 x10^3/uL (0.0-1.1) Eosinophils # (Auto) 0.0 x10^3/uL (0.0-0.7) Basophils # (Auto) 0.1 x10^3/uL (0.0-0.2) Sodium Level 139 mmol/L (136-145) Potassium Level 3.9 mmol/L (3.5-5.1) Chloride Level 101 mmol/L (98-107) Carbon Dioxide Level 19 mmol/L (21-32) Anion Gap 19 (6-14) Blood Urea Nitrogen 21 mg/dL (8-26) Creatinine 1.0 mg/dL (0.7-1.3) Estimated GFR (Cockcroft-Gault) 78.2 BUN/Creatinine Ratio 21 (6-20) Glucose Level 111 mg/dL (70-99) Calcium Level 9.8 mg/dL (8.5-10.1) Total Bilirubin 0.6 mg/dL (0.2-1.0) Aspartate Amino Transf (AST/SGOT) 28 U/L (15-37) Alanine Aminotransferase (ALT/SGPT) 52 U/L (16-63) Alkaline Phosphatase 82 U/L (46-116) Troponin I Quantitative < 0.017 ng/mL (0.000-0.055) C-Reactive Protein, Quantitative 35.1 mg/L (0-3.3) Total Protein 7.9 g/dL (6.4-8.2) Albumin 3.9 g/dL (3.4-5.0) Albumin/Globulin Ratio 1.0 (1.0-1.7) Procalcitonin < 0.10 ng/mL (0.00-0.10) Microbiology 05/01/21 Blood Culture - Preliminary, Resulted NO GROWTH AFTER 2 DAYS Medications Current Medications Piperacillin Sod/ Tazobactam Sod 4.5 gm/Sodium Chloride 100 ml @ 200 mls/hr 1X ONCE IV Last administered on 05/01/21at 16:54; Start 05/01/21 at 14:15; Stop 05/01/21 at 14:44; Status DC Vancomycin HCl (Vanco Per Pharmacy) 1 each 1X ONCE MC Last administered on 05/01/21at 13:45; Start 05/01/21 at 13:45; Stop 05/01/21 at 16:48; Status DC Morphine Sulfate (Morphine Sulfate) 4 mg PRN Q15MIN PRN IV/SQ PAIN GREATER THAN 3/10 Last administered on 05/01/21at 15:09; Start 05/01/21 at 13:45; Stop 05/02/21 at 11:59; Status DC Ondansetron HCl (Zofran) 4 mg 1X ONCE IVP Last administered on 05/01/21at 14:09; Start 05/01/21 at 14:15; Stop 05/01/21 at 14:16; Status DC Vancomycin HCl 2 gm/Sodium Chloride 500 ml @ 250 mls/hr 1X ONCE IV Last administered on 05/01/21at 16:55; Start 05/01/21 at 14:30; Stop 05/01/21 at 16:29; Status DC Sodium Chloride 1,000 ml @ 1,000 mls/hr 1X ONCE IV Last administered on 05/01/21at 14:07; Start 05/01/21 at 14:00; Stop 05/01/21 at 14:59; Status DC Ondansetron HCl (Zofran) 4 mg PRN Q8HRS PRN IV NAUSEA/VOMITING; Start 05/01/21 at 15:00; Stop 05/02/21 at 14:59; Status DC Morphine Sulfate (Morphine Sulfate) 4 mg PRN Q2HR PRN IV PAIN Last administered on 05/02/21at 10:14; Start 05/01/21 at 15:00; Stop 05/02/21 at 14:59; Status DC Sodium Chloride 1,000 ml @ 125 mls/hr 1X ONCE IV Last administered on 05/01/21at 15:00; Start 05/01/21 at 15:00; Stop 05/01/21 at 22:59; Status DC Famotidine (Pepcid Vial) 20 mg QHS IVP Last administered on 05/02/21at 21:54; Start 05/01/21 at 21:00 Iohexol (Omnipaque 240 Mg/ml) 30 ml 1X ONCE PO Last administered on 05/01/21at 16:30; Start 05/01/21 at 16:30; Stop 05/01/21 at 16:31; Status DC Iohexol (Omnipaque 300 Mg/ml) 75 ml 1X ONCE IV Last administered on 05/01/21at 17:30; Start 05/01/21 at 16:30; Stop 05/01/21 at 16:31; Status DC Info (CONTRAST GIVEN -- Rx MONITORING) 1 each PRN DAILY PRN MC SEE COMMENTS; Start 05/01/21 at 16:45; Stop 05/03/21 at 16:44; Status DC Metronidazole (Flagyl) 500 mg Q8HRS PO Last administered on 05/02/21at 06:19; Start 05/01/21 at 22:00; Stop 05/02/21 at 09:25; Status DC Levofloxacin/ Dextrose 100 ml @ 100 mls/hr Q24H IV Last administered on 05/01/21at 21:08; Start 05/01/21 at 21:00; Stop 05/02/21 at 09:25; Status DC Piperacillin Sod/ Tazobactam Sod 3.375 gm/Sodium Chloride 50 ml @ 100 mls/hr Q6HRS IV Last administered on 05/03/21at 12:59; Start 05/02/21 at 12:00; Stop 05/03/21 at 16:14; Status DC Amino Acids/ Glycerin/ Electrolytes 1,000 ml @ 75 mls/hr [id number] IV Last administered on 05/03/21at 00:45; Start 05/02/21 at 11:00; Stop 05/03/21 at 16:14 ; Status DC Ketorolac Tromethamine (Toradol 15mg Vial) 15 mg PRN Q6HRS PRN IVP INFLAMMATION; Start 05/02/21 at 15:45; Stop 05/07/21 at 15:44 Ondansetron HCl (Zofran) 4 mg PRN Q6HRS PRN IVP NAUSEA/VOMITING; Start 05/02/21 at 15:45 Metronidazole (Flagyl) 500 mg Q8HRS PO Last administered on 05/04/21at 05:53; Start 05/03/21 at 16:15; Stop 05/04/21 at 10:36; Status DC Levofloxacin (Levaquin) 500 mg DAILY ONCE PO ; Start 05/04/21 at 09:00; Stop 05/03/21 at 16:17; Status DC Levofloxacin (Levaquin) 500 mg DAILY06 PO Last administered on 05/04/21at 05:53; Start 05/04/21 at 06:00; Stop 05/04/21 at 10:02; Status DC Piperacillin Sod/ Tazobactam Sod 3.375 gm/Sodium Chloride 50 ml @ 100 mls/hr Q6HRS IV ; Start 05/04/21 at 12:00 Metronidazole 100 ml @ 100 mls/hr Q8HRS IV ; Start 05/04/21 at 11:00 Amino Acids/ Glycerin/ Electrolytes 1,000 ml @ 110 mls/hr Q9H6M IV ; Start 05/04/21 at 10:45 Sodium Chloride 1,000 ml @ 500 mls/hr 1X ONCE IV ; Start 05/04/21 at 11:00; Stop 05/04/21 at 12:59 Active Scripts Active Cipro (Ciprofloxacin Hcl) 500 Mg Tablet 1 Tab PO BID 7 Days Flagyl (Metronidazole) 500 Mg Tablet 1 Tab PO TID 7 Days Hydrocodone-Acetamin 5-325 mg (Hydrocodone/Acetaminophen) 1 Each Tablet 1 Each PO Q6HRS Diclofenac Sodium 50 Mg Tablet.dr 1 Tab PO BID Medrol (Methylprednisolone) 4 Mg Tab.ds.pk 1 Pkg PO UD Cyclobenzaprine Hcl 10 Mg Tablet 1 Tab PO TID Vitals/I & O Vital Sign - Last 24 Hours 05/03/21 05/03/21 05/03/21 05/03/21 15:00 19:00 20:00 23:00 Temp 98.0 97.9 98.1 98.0 97.9 98.1 Pulse 65 66 79 Resp 18 18 18 B/P (MAP) 144/92 (109) 164/111 (128) 147/101 (116) Pulse Ox 97 98 96 O2 Delivery Room Air Room Air Room Air Room Air 05/04/21 05/04/21 05/04/21 05/04/21 07:00 08:00 10:45 11:00 Temp 97.7 97.7 Pulse 96 93 101 Resp 18 22 18 B/P (MAP) 130/96 (107) 177/117 (137) 127/93 (104) Pulse Ox 98 97 O2 Delivery Room Air Room Air Room Air Room Air O2 Flow Rate 99.0 Intake and Output 05/03/21 05/03/21 05/04/21 15:00 23:00 07:00 Intake Total 200 ml 200 ml Balance 200 ml 200 ml Problem List Problems Medical Problems: (1) Diverticulitis Status: Acute Assessment Diverticulitis- with improving Ct scan, apparent allergy to levaquin, modify antibiotics and resume diet as tolerated Justicifation of Admission Dx: Justifications for Admission: Justification of Admission Dx: Yes JOZEF PATRICK MD May 04, 2021 12:38
--- NOTE | 2021-05-04 14:31 | EKG ---
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
[2021-05-04] MEDS ORDERED: ONDANSETRON ODT 4 MG TAB.RAPDIS. PO PRN (19:00)
--- NOTE | 2021-05-04 20:20 | CONS ---
DATE OF CONSULTATION: 05/04/2021 REFERRING PHYSICIAN: Dr. Babin. REASON FOR CONSULTATION: Antibiotic management, acute diverticulitis. HISTORY OF PRESENT ILLNESS: This is a 51-year-old male with history of chronic back pain, presented to the ER on 05/01 with complaints of abdominal pain which began four days ago. The patient was seen in the ER 2 days prior to presentation and was diagnosed with diverticulitis. He was started on Cipro and Flagyl and hydrocodone. He felt his symptoms got worse. CT abdomen and pelvis on 04/29 revealed wall thickening of the sigmoid colon with adjacent edema to the fat could be from diverticulitis, dilatation of the pancreatic duct is seen. Liver shows fatty infiltration. He had repeat CT done on presentation to the ER again, which showed interval increase in the moderate inflammatory fat stranding identified about the proximal sigmoid colon, likely acute diverticulitis again identified within the 2 cm air fluid collection identified within the inflammation about the sigmoid colon, could be phlegmon or developing abscess, hepatic steatosis, 4.5 mm pulmonary nodule. The patient had received numerous antibiotics including vancomycin, Zosyn, one dose of Levaquin and Flagyl. This morning, he was restarted on metronidazole. The patient felt fine earlier when he took p.o. Levaquin, but now felt lightheaded, nearly passed out, dry heaving in the room and felt weak. at bedside. Denies any fevers, headaches, sore throat, nausea, vomiting, has numerous bowel movements liquid. No symptoms. No rash. EKG was done. Stat labs are pending at this time. The patient is being moved to CVC bed. Plans are for repeat CT abdomen and pelvis, blood cultures done. The patient has been restarted on IV Zosyn. Continued him on IV Flagyl. ID consultation has been requested for antibiotic management. REVIEW OF SYSTEMS: Negative except for above in HPI. PAST MEDICAL HISTORY: Diverticulosis. ALLERGIES: None. FAMILY HISTORY: As per HPI. SOCIAL HISTORY: Does not smoke, alcohol, no drugs. 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 at bedside. CURRENT MEDICATIONS: Reviewed in [facility]. PHYSICAL EXAMINATION: VITAL SIGNS: Temperature 97.7, pulse 96, respiratory rate 18, blood pressure 130/96, oxygen saturation 98% on room air. GENERAL: Tired appearing male, sitting upright in chair in no acute distress. HEENT: Normocephalic, atraumatic. Anicteric. NECK: Supple. No JVD. LUNGS: Clear bilaterally. No wheezing. HEART: S1, S2. No gallops or murmurs. ABDOMEN: Mildly distended, hypoactive bowel sounds. No rebound, no guarding. EXTREMITIES: No edema, no cyanosis. DERMATOLOGIC: Warm, dry, no generalized rash. NEUROLOGIC: Alert and oriented x 3, grossly nonfocal. PSYCHIATRIC: Calm and cooperative. LABORATORY DATA: WBC 8.7, on presentation was 15.2. On 04/29 it was 18.7, hemoglobin 14.7, hematocrit 42.6, platelets 222. Sodium 140, potassium 4.0, chloride 105, bicarbonate 26, BUN 14, creatinine 1.1, glucose 101, albumin 3.1. Procalcitonin normal on presentation. UA negative on presentation. Micro: Blood culture was negative from 05/01. IMAGING: CT abdomen and pelvis 05/01 shows interval increase in the moderate inflammatory fat stranding identified about the proximal sigmoid colon, likely acute diverticulitis again identified with small 2 cm air fluid collection identified, with the inflammation about the sigmoid colon could be phlegmon or developing abscess. Moderate thickened appearance of the wall of the sigmoid colon could be due to non-distention or underlying mucosal pathology such as neoplasm is not completely excluded, hepatic steatosis, 4.5 mm pulmonary nodule. IMPRESSION: 1. Leukocytosis 2. Acute diverticulosis with possible developing sigmoid abscess. 3. Abdominal pain. 4. Fatty liver. 5. Protein-calorie malnutrition. 6. Pulmonary nodule 4.5 mm. 7. Possible allergic reaction to Levaquin, but had tolerated it well on 04/30 8. Dizziness, fatigue and near syncope. Work up pending this am. RECOMMENDATIONS: 1. Agree with discontinuing Levaquin. 2. Continue Zosyn. 3. Continue Flagyl for now. 4. Followup repeat CT abdomen and pelvis. 5. Followup repeat labs this morning. 6. Pt is awaiting transfer to telemetry bed . 7. Maintain aspiration precaution. 8. Continue supportive care. Discussed with at bedside. Discussed with RN. Thank you for consulting infectious disease to participate in this patient's care. If you have any questions, do not hesitate to contact me. CHRIS DR: Luz TID: [id number] MTDD
[2021-05-05] MEDS: PIPERACILLIN/TAZOBACTAM 3.375 GM in IV NORMAL SALINE 50ML 50 ML IV SCH ×4 (03:28→17:44)
[2021-05-05] MEDS: FAMOTIDINE 20 MG/2 ML VIAL IVP SCH ×2 (03:28→21:04)
[2021-05-05 03:30] VITALS: BP 136/108
--- NOTE | 2021-05-05 03:30 | NUR ---
Spoke with Zoila, nursing bridges and buildings supervisor, around 0100 regarding ETA of [facility] for PICC. She stated that she had not heard anything and would call them again. Updated patient. Non-administered IV antibiotics on eMAR at this time. Will continue with plan of care.
[2021-05-05 06:26] LABS: BASO # 0.1 x10^3/uL (0.0-0.2); BASO % 1 % (0-3); EOS % 0 % (0-3); HEMATOCRIT 48.1 % (39.0-53.0); HEMOGLOBIN 16.5 g/dL (13.0-17.5); LYMPH % 16 % (24-48); MEAN CORPUSCULAR HEMOGLOBIN 29 pg (25-35); MEAN CORPUSCULAR HGB CONC 34 g/dL (31-37); MEAN CORPUSCULAR VOLUME 85 fL (79-100); MONO # 1.2 x10^3/uL (0.0-1.1); MONO % 9 % (0-9); NEUT # 9.3 x10^3/uL (1.8-7.7); NEUT % 74 % (31-73); PLATELET COUNT 290 x10^3/uL (140-400); RED BLOOD COUNT 5.63 x10^6/uL (4.30-5.70); RED CELL DISTRIBUTION WIDTH 12.6 % (11.5-14.5); WHITE BLOOD COUNT 12.6 x10^3/uL (4.0-11.0)
--- NOTE | 2021-05-05 06:36 | NUR ---
Spoke with Zoila, nursing field supervisor, again regarding PICC. She stated that [facility] did not answer when she called and that IR may have to place PICC today. Informed patient. He does not have any questions or concerns at this time.
[2021-05-05 06:39] LABS: ALBUMIN 3.5 g/dL (3.4-5.0); ALBUMIN/GLOBULIN RATIO 0.8 (1.0-1.7); CREATININE 1.2 mg/dL (0.7-1.3); GFR 63.3; POTASSIUM 4.2 mmol/L (3.5-5.1); TOTAL BILIRUBIN 0.6 mg/dL (0.2-1.0)
[2021-05-05 07:00] VITALS: BP 141/91
--- NOTE | 2021-05-05 10:38 | PDOC ---
Infectious Disease Note Subjective: Subjective Patient feels much better today Denies fever, nausea, vomiting, dizziness shortness of breath, diarrhea, abdominal pain, rash Tolerate clear liquids and Jell-O well Had a bowel movement this morning Otherwise as above Vital Signs: Vital Signs Vital Signs Date Time Temp Pulse Resp B/P (MAP) Pulse Ox O2 Delivery O2 Flow Rate FiO2 05/05/21 07:00 97.8 86 18 141/91 (108) 96 Room Air 97.8 05/04/21 10:45 99.0 Physical Exam: PHYSICAL EXAM GENERAL: Tired appearing male, sitting upright in chair in no acute distress. HEENT: Normocephalic, atraumatic. Anicteric. NECK: Supple. No JVD. LUNGS: Clear bilaterally. No wheezing. HEART: S1, S2. No gallops or murmurs. ABDOMEN: Mildly distended, hypoactive bowel sounds. No rebound, no guarding. EXTREMITIES: No edema, no cyanosis. DERMATOLOGIC: Warm, dry, no generalized rash. NEUROLOGIC: Alert and oriented x 3, grossly nonfocal. PSYCHIATRIC: Calm and cooperative. Medications: Inpatient Meds: Medications reviewed. Labs: Lab Laboratory Tests Test 05/04/21 11:10 05/05/21 05:45 White Blood Count 12.2 x10^3/uL (4.0-11.0) 12.6 x10^3/uL (4.0-11.0) Red Blood Count 5.71 x10^6/uL (4.30-5.70) 5.63 x10^6/uL (4.30-5.70) Hemoglobin 16.8 g/dL (13.0-17.5) 16.5 g/dL (13.0-17.5) Hematocrit 48.3 % (39.0-53.0) 48.1 % (39.0-53.0) Mean Corpuscular Volume 85 fL (79-100) 85 fL (79-100) Mean Corpuscular Hemoglobin 29 pg (25-35) 29 pg (25-35) Mean Corpuscular Hemoglobin Concent 35 g/dL (31-37) 34 g/dL (31-37) Red Cell Distribution Width 12.5 % (11.5-14.5) 12.6 % (11.5-14.5) Platelet Count 297 x10^3/uL (140-400) 290 x10^3/uL (140-400) Neutrophils (%) (Auto) 74 % (31-73) 74 % (31-73) Lymphocytes (%) (Auto) 17 % (24-48) 16 % (24-48) Monocytes (%) (Auto) 9 % (0-9) 9 % (0-9) Eosinophils (%) (Auto) 0 % (0-3) 0 % (0-3) Basophils (%) (Auto) 1 % (0-3) 1 % (0-3) Neutrophils # (Auto) 9.0 x10^3/uL (1.8-7.7) 9.3 x10^3/uL (1.8-7.7) Lymphocytes # (Auto) 2.0 x10^3/uL (1.0-4.8) 2.0 x10^3/uL (1.0-4.8) Monocytes # (Auto) 1.0 x10^3/uL (0.0-1.1) 1.2 x10^3/uL (0.0-1.1) Eosinophils # (Auto) 0.0 x10^3/uL (0.0-0.7) 0.0 x10^3/uL (0.0-0.7) Basophils # (Auto) 0.1 x10^3/uL (0.0-0.2) 0.1 x10^3/uL (0.0-0.2) Sodium Level 139 mmol/L (136-145) 138 mmol/L (136-145) Potassium Level 3.9 mmol/L (3.5-5.1) 4.2 mmol/L (3.5-5.1) Chloride Level 101 mmol/L (98-107) 102 mmol/L (98-107) Carbon Dioxide Level 19 mmol/L (21-32) 27 mmol/L (21-32) Anion Gap 19 (6-14) 9 (6-14) Blood Urea Nitrogen 21 mg/dL (8-26) 25 mg/dL (8-26) Creatinine 1.0 mg/dL (0.7-1.3) 1.2 mg/dL (0.7-1.3) Estimated GFR (Cockcroft-Gault) 78.2 63.3 BUN/Creatinine Ratio 21 (6-20) 21 (6-20) Glucose Level 111 mg/dL (70-99) 107 mg/dL (70-99) Calcium Level 9.8 mg/dL (8.5-10.1) 9.0 mg/dL (8.5-10.1) Total Bilirubin 0.6 mg/dL (0.2-1.0) 0.6 mg/dL (0.2-1.0) Aspartate Amino Transf (AST/SGOT) 28 U/L (15-37) 29 U/L (15-37) Alanine Aminotransferase (ALT/SGPT) 52 U/L (16-63) 45 U/L (16-63) Alkaline Phosphatase 82 U/L (46-116) 77 U/L (46-116) Troponin I Quantitative < 0.017 ng/mL (0.000-0.055) C-Reactive Protein, Quantitative 35.1 mg/L (0-3.3) Total Protein 7.9 g/dL (6.4-8.2) 8.0 g/dL (6.4-8.2) Albumin 3.9 g/dL (3.4-5.0) 3.5 g/dL (3.4-5.0) Albumin/Globulin Ratio 1.0 (1.0-1.7) 0.8 (1.0-1.7) Procalcitonin < 0.10 ng/mL (0.00-0.10) Micro Blood cultures negative Impression: 1. Mildly improved acute sigmoid diverticulitis. The small complex collection to the left of the sigmoid colon persists but no longer contains gas. This is too small to drain. No new fluid collection. Recommend colonoscopy after treatment to exclude underlying mass. 2. Hepatic steatosis. Objective: Assessment: 1. Leukocytosis 2. Acute diverticulosis with possible developing sigmoid abscess. 3. Abdominal pain. 4. Fatty liver. 5. Protein-calorie malnutrition. 6. Pulmonary nodule 4.5 mm. 7. Possible allergic reaction to Levaquin, but had tolerated it well on 04/30 8. Dizziness, fatigue and near syncope. Work up pending this am. Plan: Plan of Care Continue Zosyn. SUSSY Khalil Followup CT abdomen and pelvis results reviewed. Continue supportive care. Discussed with general surgery MAYITO DAVIS MD May 05, 2021 10:38
[2021-05-05 11:00] VITALS: BP 110/86
--- NOTE | 2021-05-05 11:24 | PDOC ---
NATALIE RODRIGES [employer] 05/05/21 1124: SURGICAL PROGRESS NOTE DATE: 05/05/21 TIME: 11:23 Subjective overall feels much better loose stools Vital Signs Vital Signs Date Time Temp Pulse Resp B/P (MAP) Pulse Ox O2 Delivery O2 Flow Rate FiO2 05/05/21 11:00 98.0 111 18 110/86 (94) 96 Room Air 98.0 05/04/21 10:45 99.0 I&O Intake and Output 05/05/21 07:00 Intake Total 100 ml Balance 100 ml Intake Oral 100 ml # Voids 2 General: Alert, Oriented X3, Cooperative Abdomen: Soft, No tenderness Labs Laboratory Tests Test 05/04/21 09:23 05/04/21 11:10 05/05/21 05:45 Glucose (Fingerstick) 109 mg/dL (70-99) White Blood Count 12.2 x10^3/uL (4.0-11.0) 12.6 x10^3/uL (4.0-11.0) Red Blood Count 5.71 x10^6/uL (4.30-5.70) 5.63 x10^6/uL (4.30-5.70) Hemoglobin 16.8 g/dL (13.0-17.5) 16.5 g/dL (13.0-17.5) Hematocrit 48.3 % (39.0-53.0) 48.1 % (39.0-53.0) Mean Corpuscular Volume 85 fL (79-100) 85 fL (79-100) Mean Corpuscular Hemoglobin 29 pg (25-35) 29 pg (25-35) Mean Corpuscular Hemoglobin Concent 35 g/dL (31-37) 34 g/dL (31-37) Red Cell Distribution Width 12.5 % (11.5-14.5) 12.6 % (11.5-14.5) Platelet Count 297 x10^3/uL (140-400) 290 x10^3/uL (140-400) Neutrophils (%) (Auto) 74 % (31-73) 74 % (31-73) Lymphocytes (%) (Auto) 17 % (24-48) 16 % (24-48) Monocytes (%) (Auto) 9 % (0-9) 9 % (0-9) Eosinophils (%) (Auto) 0 % (0-3) 0 % (0-3) Basophils (%) (Auto) 1 % (0-3) 1 % (0-3) Neutrophils # (Auto) 9.0 x10^3/uL (1.8-7.7) 9.3 x10^3/uL (1.8-7.7) Lymphocytes # (Auto) 2.0 x10^3/uL (1.0-4.8) 2.0 x10^3/uL (1.0-4.8) Monocytes # (Auto) 1.0 x10^3/uL (0.0-1.1) 1.2 x10^3/uL (0.0-1.1) Eosinophils # (Auto) 0.0 x10^3/uL (0.0-0.7) 0.0 x10^3/uL (0.0-0.7) Basophils # (Auto) 0.1 x10^3/uL (0.0-0.2) 0.1 x10^3/uL (0.0-0.2) Sodium Level 139 mmol/L (136-145) 138 mmol/L (136-145) Potassium Level 3.9 mmol/L (3.5-5.1) 4.2 mmol/L (3.5-5.1) Chloride Level 101 mmol/L (98-107) 102 mmol/L (98-107) Carbon Dioxide Level 19 mmol/L (21-32) 27 mmol/L (21-32) Anion Gap 19 (6-14) 9 (6-14) Blood Urea Nitrogen 21 mg/dL (8-26) 25 mg/dL (8-26) Creatinine 1.0 mg/dL (0.7-1.3) 1.2 mg/dL (0.7-1.3) Estimated GFR (Cockcroft-Gault) 78.2 63.3 BUN/Creatinine Ratio 21 (6-20) 21 (6-20) Glucose Level 111 mg/dL (70-99) 107 mg/dL (70-99) Calcium Level 9.8 mg/dL (8.5-10.1) 9.0 mg/dL (8.5-10.1) Total Bilirubin 0.6 mg/dL (0.2-1.0) 0.6 mg/dL (0.2-1.0) Aspartate Amino Transf (AST/SGOT) 28 U/L (15-37) 29 U/L (15-37) Alanine Aminotransferase (ALT/SGPT) 52 U/L (16-63) 45 U/L (16-63) Alkaline Phosphatase 82 U/L (46-116) 77 U/L (46-116) Troponin I Quantitative < 0.017 ng/mL (0.000-0.055) C-Reactive Protein, Quantitative 35.1 mg/L (0-3.3) Total Protein 7.9 g/dL (6.4-8.2) 8.0 g/dL (6.4-8.2) Albumin 3.9 g/dL (3.4-5.0) 3.5 g/dL (3.4-5.0) Albumin/Globulin Ratio 1.0 (1.0-1.7) 0.8 (1.0-1.7) Procalcitonin < 0.10 ng/mL (0.00-0.10) Laboratory Tests Test 05/05/21 05:45 White Blood Count 12.6 x10^3/uL (4.0-11.0) Red Blood Count 5.63 x10^6/uL (4.30-5.70) Hemoglobin 16.5 g/dL (13.0-17.5) Hematocrit 48.1 % (39.0-53.0) Mean Corpuscular Volume 85 fL (79-100) Mean Corpuscular Hemoglobin 29 pg (25-35) Mean Corpuscular Hemoglobin Concent 34 g/dL (31-37) Red Cell Distribution Width 12.6 % (11.5-14.5) Platelet Count 290 x10^3/uL (140-400) Neutrophils (%) (Auto) 74 % (31-73) Lymphocytes (%) (Auto) 16 % (24-48) Monocytes (%) (Auto) 9 % (0-9) Eosinophils (%) (Auto) 0 % (0-3) Basophils (%) (Auto) 1 % (0-3) Neutrophils # (Auto) 9.3 x10^3/uL (1.8-7.7) Lymphocytes # (Auto) 2.0 x10^3/uL (1.0-4.8) Monocytes # (Auto) 1.2 x10^3/uL (0.0-1.1) Eosinophils # (Auto) 0.0 x10^3/uL (0.0-0.7) Basophils # (Auto) 0.1 x10^3/uL (0.0-0.2) Sodium Level 138 mmol/L (136-145) Potassium Level 4.2 mmol/L (3.5-5.1) Chloride Level 102 mmol/L (98-107) Carbon Dioxide Level 27 mmol/L (21-32) Anion Gap 9 (6-14) Blood Urea Nitrogen 25 mg/dL (8-26) Creatinine 1.2 mg/dL (0.7-1.3) Estimated GFR (Cockcroft-Gault) 63.3 BUN/Creatinine Ratio 21 (6-20) Glucose Level 107 mg/dL (70-99) Calcium Level 9.0 mg/dL (8.5-10.1) Total Bilirubin 0.6 mg/dL (0.2-1.0) Aspartate Amino Transf (AST/SGOT) 29 U/L (15-37) Alanine Aminotransferase (ALT/SGPT) 45 U/L (16-63) Alkaline Phosphatase 77 U/L (46-116) Total Protein 8.0 g/dL (6.4-8.2) Albumin 3.5 g/dL (3.4-5.0) Albumin/Globulin Ratio 0.8 (1.0-1.7) Problem List Problems Medical Problems: (1) Diverticulitis Status: Acute Assessment/Plan improved abx per ID full liquids Justicifation of Admission Dx: Justifications for Admission: Justification of Admission Dx: Yes RIA JUNE MD 05/05/21 1617: SURGICAL PROGRESS NOTE Assessment/Plan Pt seen and examined. Agree with Ms. Rodriges's note Pt feels well, mandeep diet, passing stools, denies pain abd soft, Nd, NTTP will ADAT and work towards d/c. Favor elective colonoscopy. NATALIE RODRIGES APRN May 05, 2021 11:24 RIA JUNE MD May 05, 2021 16:17
--- NOTE | 2021-05-05 11:38 | PDOC ---
Date of Service: DATE: 05/05/21 TIME: 11:33 Subjective: Subjective: Has no pain, tolerating clears, stooling. Now tells me he was supposed to have a colonoscopy last - not clear on details. Objective: Vital Signs: Vital Signs Date Time Temp Pulse Resp B/P (MAP) Pulse Ox O2 Delivery O2 Flow Rate FiO2 05/05/21 11:00 98.0 111 18 110/86 (94) 96 Room Air 98.0 05/04/21 10:45 99.0 Labs: Laboratory Tests Test 05/05/21 05:45 White Blood Count 12.6 x10^3/uL Red Blood Count 5.63 x10^6/uL Hemoglobin 16.5 g/dL Hematocrit 48.1 % Mean Corpuscular Volume 85 fL Mean Corpuscular Hemoglobin 29 pg Mean Corpuscular Hemoglobin Concent 34 g/dL Red Cell Distribution Width 12.6 % Platelet Count 290 x10^3/uL Neutrophils (%) (Auto) 74 % Lymphocytes (%) (Auto) 16 % Monocytes (%) (Auto) 9 % Eosinophils (%) (Auto) 0 % Basophils (%) (Auto) 1 % Neutrophils # (Auto) 9.3 x10^3/uL Lymphocytes # (Auto) 2.0 x10^3/uL Monocytes # (Auto) 1.2 x10^3/uL Eosinophils # (Auto) 0.0 x10^3/uL Basophils # (Auto) 0.1 x10^3/uL Sodium Level 138 mmol/L Potassium Level 4.2 mmol/L Chloride Level 102 mmol/L Carbon Dioxide Level 27 mmol/L Anion Gap 9 Blood Urea Nitrogen 25 mg/dL Creatinine 1.2 mg/dL Estimated GFR (Cockcroft-Gault) 63.3 BUN/Creatinine Ratio 21 Glucose Level 107 mg/dL Calcium Level 9.0 mg/dL Total Bilirubin 0.6 mg/dL Aspartate Amino Transf (AST/SGOT) 29 U/L Alanine Aminotransferase (ALT/SGPT) 45 U/L Alkaline Phosphatase 77 U/L Total Protein 8.0 g/dL Albumin 3.5 g/dL Albumin/Globulin Ratio 0.8 BLOOD CULTURE Preliminary NO GROWTH AFTER 3 DAYS BLOOD CULTURE Preliminary NO GROWTH AFTER 1 DAY Imaging: CT A/P Impression: 1. Mildly improved acute sigmoid diverticulitis. The small complex collection to the left of the sigmoid colon persists but no longer contains gas. This is too small to drain. No new fluid collection. Recommend colonoscopy after treatment to exclude underlying mass. 2. Hepatic steatosis. PE: GEN: NAD - walking around room LUNGS: CTAB HEART: RRR ABD: round, much less tender RLQ NEURO/PSYCH: A & O 3 A/P: Sigmoid diverticulitis - third CT w/ improvement as above -- Improving. Plans to advance diet. Follow-up for outpt colonoscopy in ~2 months. Justicifation of Admission Dx: Justifications for Admission: Justification of Admission Dx: Yes DIDI HAMILTON May 05, 2021 11:38
[2021-05-05] MEDS ORDERED: LIDOCAINE WITH 8.4% SOD BICARB 3 ML DISP.SYRIN. ONE (11:58)
[2021-05-05] MEDS ORDERED: LIDOCAINE WITH 8.4% SOD BICARB 3 ML DISP.SYRIN. INJ ONE (12:30)
--- NOTE | 2021-05-05 12:30 | NUR ---
Pt to IR for PICC placement, tolerated without difficulty. R upper arm. JS RN
[2021-05-05] MEDS: AMINO AC 3%/ELECTROLYTE/GLYCER 1,000 ML IV SCH ×3 (13:25→21:04)
--- NOTE | 2021-05-05 14:56 | PDOC ---
[facility] PROGRESS NOTE Date of Service DOS: DATE: 05/05/21 TIME: 14:55 Chief Complaint Chief Complaint Diverticulitis with small abscess CT report as follows; 1. Interval increase in moderate inflammatory fat stranding identified about the proximal sigmoid colon likely acute diverticulitis again identified with small 2 cm air-fluid collection identified within the inflammation about the sigmoid colon could be phlegmon or developing abscess. Moderate thickened appearance of the wall of the sigmoid colon could be due to nondistention or underlying mucosal pathology such as neoplasm is not completely excluded. Follow-up colonoscopy is recommended after the acute episode has resolved. 2. Hepatic steatosis. 3. 4.5 mm nodule left lower lobe of the lung. Follow-up per Fleischner Society guidelines in 6-12 months. History of Present Illness History of Present Illness 05/05/2021 Afebrile. Denies any significant abdominal pain and no left lower quadrant tenderness on my exam. His diet was advanced and he is currently tolerating well without further nausea or vomiting. Continue Zosyn, per ID. Patient continues to improve he may discharge tomorrow. 05/04/2021 felt fine earlier until he took po levaquin now on hold, then felt light-headed R Shawna stated he " nearly passed out, now dry heaving in room pt alert in mild distress cv rrr chest cta, abd soft, afebrile Patient seen and examined d/w in room Discussed with RN Chart reviewed He is on IV ProcalAmine yesterday, iv came out on clears, now npo Awaiting further GI input ON ADMIT interval increase in moderate inflammatory fat stranding identified about the proximal sigmoid colon likely acute diverticulitis with small 2 cm air-fluid collection identified within the inflammation about the sigmoid colon could developing abscess. Moderate thickened appearance of the wall of the sigmoid colon. Urinary bladder is mildly distended. I would error on censervative side, restart IV , IV PROCALAMINE at 100 cc/hr, CBC, COMP STAT EKG, TROPONIN I, MOVE TO CVC BED, REPEAT CT ABD/ PELVIS stat , CRP, BLOOD CULTURES, START IV ZOSYN, CONSULT ID , iv flagyl 38 Min pt exam, chart review, > 50% of time spent with exam, chart review, pt care coordination 05/03/2021 Patient seen and examined Discussed with RN Chart reviewed He is on IV ProcalAmine today Still n.p.o. Awaiting further GI input 05/02/2021 Patient seen and examined Discussed with RN Discussed with case management Chart reviewed I started IV ProcalAmine He is on IV Flagyl and IV Levaquin Discussed with his who is present and seems to be good support for him today Vitals/I&O Vitals/I&O: Vital Signs Date Time Temp Pulse Resp B/P (MAP) Pulse Ox O2 Delivery O2 Flow Rate FiO2 05/05/21 11:00 98.0 111 18 110/86 (94) 96 Room Air 98.0 05/04/21 10:45 99.0 I & O 05/04/21 05/04/21 05/05/21 15:00 23:00 07:00 Intake Total 100 ml Balance 100 ml Physical Exam Physical Exam: GENERAL: Tired appearing male, sitting upright in chair in no acute distress. HEENT: Normocephalic, atraumatic. Anicteric. NECK: Supple. No JVD. LUNGS: Clear bilaterally. No wheezing. HEART: S1, S2. No gallops or murmurs. ABDOMEN: Mildly distended, hypoactive bowel sounds. No rebound, no guarding. EXTREMITIES: No edema, no cyanosis. DERMATOLOGIC: Warm, dry, no generalized rash. NEUROLOGIC: Alert and oriented x 3, grossly nonfocal. PSYCHIATRIC: Calm and cooperative. General: Alert, Oriented X3, Cooperative Heart: Regular rate Abdomen: Soft, No tenderness Extremities: No clubbing, No cyanosis Skin: No rashes, No breakdown Labs Labs: Laboratory Tests Test 05/05/21 05:45 White Blood Count 12.6 x10^3/uL (4.0-11.0) Red Blood Count 5.63 x10^6/uL (4.30-5.70) Hemoglobin 16.5 g/dL (13.0-17.5) Hematocrit 48.1 % (39.0-53.0) Mean Corpuscular Volume 85 fL (79-100) Mean Corpuscular Hemoglobin 29 pg (25-35) Mean Corpuscular Hemoglobin Concent 34 g/dL (31-37) Red Cell Distribution Width 12.6 % (11.5-14.5) Platelet Count 290 x10^3/uL (140-400) Neutrophils (%) (Auto) 74 % (31-73) Lymphocytes (%) (Auto) 16 % (24-48) Monocytes (%) (Auto) 9 % (0-9) Eosinophils (%) (Auto) 0 % (0-3) Basophils (%) (Auto) 1 % (0-3) Neutrophils # (Auto) 9.3 x10^3/uL (1.8-7.7) Lymphocytes # (Auto) 2.0 x10^3/uL (1.0-4.8) Monocytes # (Auto) 1.2 x10^3/uL (0.0-1.1) Eosinophils # (Auto) 0.0 x10^3/uL (0.0-0.7) Basophils # (Auto) 0.1 x10^3/uL (0.0-0.2) Sodium Level 138 mmol/L (136-145) Potassium Level 4.2 mmol/L (3.5-5.1) Chloride Level 102 mmol/L (98-107) Carbon Dioxide Level 27 mmol/L (21-32) Anion Gap 9 (6-14) Blood Urea Nitrogen 25 mg/dL (8-26) Creatinine 1.2 mg/dL (0.7-1.3) Estimated GFR (Cockcroft-Gault) 63.3 BUN/Creatinine Ratio 21 (6-20) Glucose Level 107 mg/dL (70-99) Calcium Level 9.0 mg/dL (8.5-10.1) Total Bilirubin 0.6 mg/dL (0.2-1.0) Aspartate Amino Transf (AST/SGOT) 29 U/L (15-37) Alanine Aminotransferase (ALT/SGPT) 45 U/L (16-63) Alkaline Phosphatase 77 U/L (46-116) Total Protein 8.0 g/dL (6.4-8.2) Albumin 3.5 g/dL (3.4-5.0) Albumin/Globulin Ratio 0.8 (1.0-1.7) Assessment and Plan Assessmemt and Plan Problems Medical Problems: (1) Diverticulitis Status: Acute Comment Review of Relevant I have reviewed the following items keegan (where applicable) has been applied. Medications: Current Medications Medications (Trade) Dose Ordered Sig/Jaya Route PRN Reason Start Time Stop Time Status Last Admin Dose Admin Ondansetron HCl (Zofran Odt) 4 mg PRN Q8HRS PRN PO NAUSEA/VOMITING 05/04/21 19:00 05/04/21 19:30 Lidocaine HCl (Buffered Lidocaine 1%) 3 ml 1X ONCE INJ 05/05/21 12:30 05/05/21 12:31 DC 05/05/21 12:30 Justifications for Admission Other Justification ZEINAB BURGOS MD May 05, 2021 14:56
[2021-05-05 15:00] VITALS: BP 148/114
[2021-05-05 19:00] VITALS: BP 119/80
[2021-05-05] MEDS: LACTOBACILLUS RHAMNOSUS GG 1 CAPSULE. PO SCH ×2 (21:00→21:04)
[2021-05-05 23:00] VITALS: BP 141/91
[2021-05-06 03:00] VITALS: BP 109/73
[2021-05-06] MEDS: PIPERACILLIN/TAZOBACTAM 3.375 GM in IV NORMAL SALINE 50ML 50 ML IV SCH ×2 (05:13)
[2021-05-06 07:30] VITALS: BP 114/79
[2021-05-06] MEDS: AMINO AC 3%/ELECTROLYTE/GLYCER 1,000 ML IV SCH (08:15)
[2021-05-06] MEDS: LACTOBACILLUS RHAMNOSUS GG 1 CAPSULE. PO SCH (09:00)
--- NOTE | 2021-05-06 09:06 | PDOC ---
NATALIE RODRIGES MATERIAL MANAGER 05/06/21 0906: SURGICAL PROGRESS NOTE DATE: 05/06/21 TIME: 09:05 Subjective tolerating diet feels well stools improved Vital Signs Vital Signs Date Time Temp Pulse Resp B/P (MAP) Pulse Ox O2 Delivery O2 Flow Rate FiO2 05/06/21 07:30 98.5 81 20 114/79 (91) 96 Room Air 98.5 I&O Intake and Output 05/06/21 07:00 Intake Total 920 ml Balance 920 ml Intake Oral 920 ml # Voids 1 # Bowel Movements 1 General: Alert, Oriented X3, Cooperative Abdomen: Soft, No tenderness Labs Laboratory Tests Test 05/04/21 09:23 05/04/21 11:10 05/05/21 05:45 Glucose (Fingerstick) 109 mg/dL (70-99) White Blood Count 12.2 x10^3/uL (4.0-11.0) 12.6 x10^3/uL (4.0-11.0) Red Blood Count 5.71 x10^6/uL (4.30-5.70) 5.63 x10^6/uL (4.30-5.70) Hemoglobin 16.8 g/dL (13.0-17.5) 16.5 g/dL (13.0-17.5) Hematocrit 48.3 % (39.0-53.0) 48.1 % (39.0-53.0) Mean Corpuscular Volume 85 fL (79-100) 85 fL (79-100) Mean Corpuscular Hemoglobin 29 pg (25-35) 29 pg (25-35) Mean Corpuscular Hemoglobin Concent 35 g/dL (31-37) 34 g/dL (31-37) Red Cell Distribution Width 12.5 % (11.5-14.5) 12.6 % (11.5-14.5) Platelet Count 297 x10^3/uL (140-400) 290 x10^3/uL (140-400) Neutrophils (%) (Auto) 74 % (31-73) 74 % (31-73) Lymphocytes (%) (Auto) 17 % (24-48) 16 % (24-48) Monocytes (%) (Auto) 9 % (0-9) 9 % (0-9) Eosinophils (%) (Auto) 0 % (0-3) 0 % (0-3) Basophils (%) (Auto) 1 % (0-3) 1 % (0-3) Neutrophils # (Auto) 9.0 x10^3/uL (1.8-7.7) 9.3 x10^3/uL (1.8-7.7) Lymphocytes # (Auto) 2.0 x10^3/uL (1.0-4.8) 2.0 x10^3/uL (1.0-4.8) Monocytes # (Auto) 1.0 x10^3/uL (0.0-1.1) 1.2 x10^3/uL (0.0-1.1) Eosinophils # (Auto) 0.0 x10^3/uL (0.0-0.7) 0.0 x10^3/uL (0.0-0.7) Basophils # (Auto) 0.1 x10^3/uL (0.0-0.2) 0.1 x10^3/uL (0.0-0.2) Sodium Level 139 mmol/L (136-145) 138 mmol/L (136-145) Potassium Level 3.9 mmol/L (3.5-5.1) 4.2 mmol/L (3.5-5.1) Chloride Level 101 mmol/L (98-107) 102 mmol/L (98-107) Carbon Dioxide Level 19 mmol/L (21-32) 27 mmol/L (21-32) Anion Gap 19 (6-14) 9 (6-14) Blood Urea Nitrogen 21 mg/dL (8-26) 25 mg/dL (8-26) Creatinine 1.0 mg/dL (0.7-1.3) 1.2 mg/dL (0.7-1.3) Estimated GFR (Cockcroft-Gault) 78.2 63.3 BUN/Creatinine Ratio 21 (6-20) 21 (6-20) Glucose Level 111 mg/dL (70-99) 107 mg/dL (70-99) Calcium Level 9.8 mg/dL (8.5-10.1) 9.0 mg/dL (8.5-10.1) Total Bilirubin 0.6 mg/dL (0.2-1.0) 0.6 mg/dL (0.2-1.0) Aspartate Amino Transf (AST/SGOT) 28 U/L (15-37) 29 U/L (15-37) Alanine Aminotransferase (ALT/SGPT) 52 U/L (16-63) 45 U/L (16-63) Alkaline Phosphatase 82 U/L (46-116) 77 U/L (46-116) Troponin I Quantitative < 0.017 ng/mL (0.000-0.055) C-Reactive Protein, Quantitative 35.1 mg/L (0-3.3) Total Protein 7.9 g/dL (6.4-8.2) 8.0 g/dL (6.4-8.2) Albumin 3.9 g/dL (3.4-5.0) 3.5 g/dL (3.4-5.0) Albumin/Globulin Ratio 1.0 (1.0-1.7) 0.8 (1.0-1.7) Procalcitonin < 0.10 ng/mL (0.00-0.10) Problem List Problems Medical Problems: (1) Diverticulitis Status: Acute Assessment/Plan improved ok to dc when medically ready abx per ID would rec GI fu for colonoscopy Justicifation of Admission Dx: Justifications for Admission: Justification of Admission Dx: Yes RIA JUNE MD 05/06/21 1228: SURGICAL PROGRESS NOTE Assessment/Plan Pt seen and examined. Agree with Ms. Rodriges's note Pt feels well and ready for d/c abd soft agree with elective colonoscopy NATALIE RODRIGES APRN May 06, 2021 09:06 RIA JUNE MD May 06, 2021 12:28
--- NOTE | 2021-05-06 09:18 | PDOC ---
Infectious Disease Note Subjective: Subjective Patient feels much better today Denies fever, nausea, vomiting, dizziness shortness of breath, diarrhea, abdominal pain, rash Tolerate diet well Had a bowel movement this morning Eager for discharge home today at bedside Vital Signs: Vital Signs Vital Signs Date Time Temp Pulse Resp B/P (MAP) Pulse Ox O2 Delivery O2 Flow Rate FiO2 05/06/21 07:30 98.5 81 20 114/79 (91) 96 Room Air 98.5 Physical Exam: PHYSICAL EXAM GENERAL: Alert oriented x3 sitting upright in chair in no acute distress. Looks much better HEENT: Normocephalic, atraumatic. Anicteric. NECK: Supple. No JVD. LUNGS: Clear bilaterally. No wheezing. HEART: S1, S2. No gallops or murmurs. ABDOMEN: Obese, nondistended, nontender, bowel sounds present, no rebound, no guarding. EXTREMITIES: No edema, no cyanosis. DERMATOLOGIC: Warm, dry, no generalized rash. NEUROLOGIC: Alert and oriented x 3, grossly nonfocal. PSYCHIATRIC: Calm and cooperative. Medications: Inpatient Meds: Medications reviewed. Labs: Micro Blood cultures negative Impression: 1. Mildly improved acute sigmoid diverticulitis. The small complex collection to the left of the sigmoid colon persists but no longer contains gas. This is too small to drain. No new fluid collection. Recommend colonoscopy after treatment to exclude underlying mass. 2. Hepatic steatosis. Objective: Assessment: 1. Leukocytosis 2. Acute diverticulosis with possible developing sigmoid abscess. 3. Abdominal pain. 4. Fatty liver. 5. Protein-calorie malnutrition. 6. Pulmonary nodule 4.5 mm. 7. Possible allergic reaction to Levaquin, but had tolerated it well on 04/30 8. Dizziness, fatigue and near syncope. Work up pending this am. Plan: Plan of Care Patient can be discharged from ID standpoint Discontinue Zosyn on discharge Augmentin for 10 days Pt had been on levaquin and flagyl prior to that Followup CT abdomen and pelvis results reviewed.Improved PICC line management per primary Continue supportive care. Discussed with at bedside MAYITO RAMIREZ MD May 06, 2021 09:17
[2021-05-06 11:24] VITALS: BP 128/96
--- NOTE | 2021-05-06 12:00 | PDOC ---
Date of Service: DATE: 05/06/21 TIME: 11:58 Subjective: Subjective: Feels fine, wants to go home. Objective: Objective: D/w nurse - possible DC today on PO atbx. Vital Signs: Vital Signs Date Time Temp Pulse Resp B/P (MAP) Pulse Ox O2 Delivery O2 Flow Rate FiO2 05/06/21 11:24 98.5 83 18 128/96 (107) 97 Room Air 98.5 Labs: BLOOD CULTURE Preliminary NO GROWTH AFTER 4 DAYS BLOOD CULTURE Preliminary NO GROWTH AFTER 2 DAYS PE: GEN: NAD, eating lunch LUNGS: CTAB HEART: RRR ABD: S/ND/NT NEURO/PSYCH: A & O 3 A/P: Sigmoid diverticulitis - improved -- DC per primary on PO atbx. He plans to see Dr. Norris for colonoscopy. Would also suggest follow-up imaging for prominent pancreatic duct as noted on CT. Justicifation of Admission Dx: Justifications for Admission: Justification of Admission Dx: Yes DIDI HAMILTON May 06, 2021 12:00
--- NOTE | 2021-05-06 12:23 | NUR ---
SW following. Discussed with RN, pt from home, room air, regular diet. GI, Surgery and ID all okay with discharge home today. Pt wanting to go home. Dr. Almanzar notified. RN advised no SW needs. SW will continue to follow.
--- NOTE | 2021-05-06 13:25 | PDOC3 ---
Discharge Summary Visit Information Date of Admission: May 01, 2021 Date of Discharge: May 06, 2021 Final Diagnosis Problems Medical Problems: (1) Diverticulitis Status: Acute Brief Hospital Course Allergies Allergies Coded Allergies Type Severity Reaction Last Updated Verified levofloxacin Allergy Intermediate light-headed, weakness 05/04/21 Yes Vital Signs Vital Signs Date Time Temp Pulse Resp B/P (MAP) Pulse Ox O2 Delivery O2 Flow Rate FiO2 05/06/21 11:24 98.5 83 18 128/96 (107) 97 Room Air 98.5 Lab Results Laboratory Tests Test 05/05/21 05:45 White Blood Count 12.6 x10^3/uL (4.0-11.0) Red Blood Count 5.63 x10^6/uL (4.30-5.70) Hemoglobin 16.5 g/dL (13.0-17.5) Hematocrit 48.1 % (39.0-53.0) Mean Corpuscular Volume 85 fL (79-100) Mean Corpuscular Hemoglobin 29 pg (25-35) Mean Corpuscular Hemoglobin Concent 34 g/dL (31-37) Red Cell Distribution Width 12.6 % (11.5-14.5) Platelet Count 290 x10^3/uL (140-400) Neutrophils (%) (Auto) 74 % (31-73) Lymphocytes (%) (Auto) 16 % (24-48) Monocytes (%) (Auto) 9 % (0-9) Eosinophils (%) (Auto) 0 % (0-3) Basophils (%) (Auto) 1 % (0-3) Neutrophils # (Auto) 9.3 x10^3/uL (1.8-7.7) Lymphocytes # (Auto) 2.0 x10^3/uL (1.0-4.8) Monocytes # (Auto) 1.2 x10^3/uL (0.0-1.1) Eosinophils # (Auto) 0.0 x10^3/uL (0.0-0.7) Basophils # (Auto) 0.1 x10^3/uL (0.0-0.2) Sodium Level 138 mmol/L (136-145) Potassium Level 4.2 mmol/L (3.5-5.1) Chloride Level 102 mmol/L (98-107) Carbon Dioxide Level 27 mmol/L (21-32) Anion Gap 9 (6-14) Blood Urea Nitrogen 25 mg/dL (8-26) Creatinine 1.2 mg/dL (0.7-1.3) Estimated GFR (Cockcroft-Gault) 63.3 BUN/Creatinine Ratio 21 (6-20) Glucose Level 107 mg/dL (70-99) Calcium Level 9.0 mg/dL (8.5-10.1) Total Bilirubin 0.6 mg/dL (0.2-1.0) Aspartate Amino Transf (AST/SGOT) 29 U/L (15-37) Alanine Aminotransferase (ALT/SGPT) 45 U/L (16-63) Alkaline Phosphatase 77 U/L (46-116) Total Protein 8.0 g/dL (6.4-8.2) Albumin 3.5 g/dL (3.4-5.0) Albumin/Globulin Ratio 0.8 (1.0-1.7) Brief Hospital Course Mr. Hendricks is a 51 old male who presented with acute diverticulitis with possible developing small abscess seen initially on CT abdomen/pelvis. Consultation was placed to GI, ID, and general surgery. He was treated with IV antibiotics. Repeat CT abdomen/pelvis showed mildly improved acute sigmoid diverticulitis with persistent small complex collection to the left of the sigmoid colon that is too small to drain. Recommend colonoscopy after treatment to exclude underlying mass. Once his symptoms improved he was stable for discharge on oral Augmentin to complete 10-day course. Instructed patient to follow-up with his PCP within the next 5-7 days to ensure continued improvement. Discharge Information Condition at Discharge: Improved Follow Up: Weeks Disposition/Orders: D/C to Home Scheduled Ciprofloxacin Hcl (Cipro) 500 Mg Tablet, 1 TAB PO BID for 7 Days, #14 Ref 0 Prescribed by: ARY ROGERS DO on 04/29/21 1159 Cyclobenzaprine Hcl (Cyclobenzaprine Hcl) 10 Mg Tablet, 1 TAB PO TID, #30 Prescribed by: Radha Sales APRN on 04/18/19 0936 Diclofenac Sodium (Diclofenac Sodium) 50 Mg Tablet., 1 TAB PO BID, #20 Ref 0 Prescribed by: Radha Sales APRN on 04/18/19 0936 Hydrocodone/Acetaminophen (Hydrocodone-Acetamin 5-325 mg) 1 Each Tablet, 1 EACH PO Q6HRS, #12 Prescribed by: ARY ROGERS DO on 04/29/21 1159 Methylprednisolone (Medrol) 4 Mg Tab.ds.pk, 1 PKG PO UD, #1 Prescribed by: Radha Sales APRN on 04/18/19 0936 Metronidazole (Flagyl) 500 Mg Tablet, 1 TAB PO TID for 7 Days, #21 Prescribed by: ARY ROGERS DO on 04/29/21 1159 Justicifation of Admission Dx: Justifications for Admission: Justification of Admission Dx: Yes ZEINAB BURGOS MD May 06, 2021 13:25
--- NOTE | 2021-05-06 13:27 | PDOC ---
[employer] PROGRESS NOTE Date of Service DOS: DATE: 05/06/21 TIME: 13:25 Chief Complaint Chief Complaint Diverticulitis with small abscess CT report as follows; 1. Interval increase in moderate inflammatory fat stranding identified about the proximal sigmoid colon likely acute diverticulitis again identified with small 2 cm air-fluid collection identified within the inflammation about the sigmoid colon could be phlegmon or developing abscess. Moderate thickened appearance of the wall of the sigmoid colon could be due to nondistention or underlying mucosal pathology such as neoplasm is not completely excluded. Follow-up colonoscopy is recommended after the acute episode has resolved. 2. Hepatic steatosis. 3. 4.5 mm nodule left lower lobe of the lung. Follow-up per Fleischner Society guidelines in 6-12 months. History of Present Illness History of Present Illness 05/06/2021 Patient states his abdominal pain is improved. Denies any fever, nausea, or vomiting. Tolerated his regular diet. Will discharge patient home on oral Augmentin for 10 days. Recommended to follow-up with his PCP within the next 5 to 7 days. Greater than 30 minutes was spent managing the discharge of this patient. 05/05/2021 Afebrile. Denies any significant abdominal pain and no left lower quadrant te nderness on my exam. His diet was advanced and he is currently tolerating well without further nausea or vomiting. Continue Zosyn, per ID. Patient continues to improve he may discharge tomorrow. 05/04/2021 felt fine earlier until he took po levaquin now on hold, then felt light-headed R Shawna stated he " nearly passed out, now dry heaving in room pt alert in mild distress cv rrr chest cta, abd soft, afebrile Patient seen and examined d/w in room Discussed with RN Chart reviewed He is on IV ProcalAmine yesterday, iv came out on clears, now npo Awaiting further GI input ON ADMIT interval increase in moderate inflammatory fat stranding identified about the proximal sigmoid colon likely acute diverticulitis with small 2 cm air-fluid collection identified within the inflammation about the sigmoid colon could developing abscess. Moderate thickened appearance of the wall of the sigmoid colon. Urinary bladder is mildly distended. I would error on censervative side, restart IV , IV PROCALAMINE at 100 cc/hr, CBC, COMP STAT EKG, TROPONIN I, MOVE TO CVC BED, REPEAT CT ABD/ PELVIS stat , CRP, BLOOD CULTURES, START IV ZOSYN, CONSULT ID , iv flagyl 38 Min pt exam, chart review, > 50% of time spent with exam, chart review, pt care coordination 05/03/2021 Patient seen and examined Discussed with RN Chart reviewed He is on IV ProcalAmine today Still n.p.o. Awaiting further GI input 05/02/2021 Patient seen and examined Discussed with RN Discussed with case management Chart reviewed I started IV ProcalAmine He is on IV Flagyl and IV Levaquin Discussed with his who is present and seems to be good support for him today Vitals/I&O Vitals/I&O: Vital Signs Date Time Temp Pulse Resp B/P (MAP) Pulse Ox O2 Delivery O2 Flow Rate FiO2 05/06/21 11:24 98.5 83 18 128/96 (107) 97 Room Air 98.5 I & O 05/05/21 05/05/21 05/06/21 15:00 23:00 07:00 Intake Total 200 ml 240 ml 480 ml Balance 200 ml 240 ml 480 ml Physical Exam Physical Exam: GENERAL: Alert oriented x3 sitting upright in chair in no acute distress. Looks much better HEENT: Normocephalic, atraumatic. Anicteric. NECK: Supple. No JVD. LUNGS: Clear bilaterally. No wheezing. HEART: S1, S2. No gallops or murmurs. ABDOMEN: Obese, nondistended, nontender, bowel sounds present, no rebound, no guarding. EXTREMITIES: No edema, no cyanosis. DERMATOLOGIC: Warm, dry, no generalized rash. NEUROLOGIC: Alert and oriented x 3, grossly nonfocal. PSYCHIATRIC: Calm and cooperative. General: Alert, Oriented X3, Cooperative, No acute distress Heart: Regular rate Lungs: Clear Abdomen: Soft, No tenderness Extremities: No clubbing, No cyanosis Skin: No rashes, No breakdown Assessment and Plan Assessmemt and Plan Problems Medical Problems: (1) Diverticulitis Status: Acute Comment Review of Relevant I have reviewed the following items keegan (where applicable) has been applied. Justifications for Admission Other Justification ZEINAB BURGOS MD May 06, 2021 13:27
[2021-05-06] MEDS ORDERED: AMOX1TAB61 PO (13:29)
--- NOTE | 2021-05-06 13:43 | RAD ---
Procedure: Upper extremity PICC line placement Clinical Indication: Adult male requiring long-term venous access Sedation: Local anesthesia only was provided Antibiotics: None Exposure: Kerma-Area Product: 2 mGycm2 Contrast: None Sterility: All elements of maximal sterile barrier technique including the use of a cap, mask, steril e gown, sterile gloves, large sterile sheet, appropriate hand hygiene, and 2% chlorhexidine for cutan eous antisepsis (or acceptable alternative antiseptic per current guidelines) were followed for this procedure. Consent: The procedure was explained in its entirety to the patient or the patients designated repres entative by a member of the treatment team, including a discussion of the risks, benefits and commonl y accepted alternatives to the procedure, as well as the expected consequences of no therapy whatsoev er. Discussion of the risks included, but was not limited to, those that are most frequent and thos e that are rare but possibly severe or life-threatening, as well as the possibility of unforeseen com plications. Technique and Findings: Following informed consent, the patient was prepped and draped in the usual s terile fashion. Ultrasound interrogation of the right arm revealed patency and compressibility of th e right basilic vein. A hard copy ultrasound image was recorded. 1% Lidocaine was used to achieve l ocal anesthesia and a 21-gauge micropuncture needle was used to gain access to the targeted vein. Th e needle was exchanged over wire for a 5 [place] peel-away sheath which was used to deploy a PICC line under fluoroscopic guidance such that the distal tip resided at the cavoatrial junction. The cathet er flushed and aspirated with ease and was sutured to the skin. Complications: No immediate Impression: 1. Ultrasound guided PICC line placement as described. Electronically signed by: Nathanael Condon MD (05/06/2021 8:38 AM) [id number]
--- NOTE | 2021-05-06 14:48 | NUR ---
patient discharged home w/ spouse. script for augmentin called to [facility] on [address]. PICC removed from right upper arm, intact. Meds and follow up reviewed. pt stable upon dc.
== END 2021-05-06 14:58 | disposition home or self-care (01) | DRG 392 ==
LOC: ER 13:17 → 4 NORTH 14:49 → 6 SOUTH 05-04 20:04
PROVIDERS: ADMIT Internal Medicine; ATTEND Internal Medicine
PROC: 02HV33Z Insertion of Infusion Device into Superior Vena Cava, Percutaneous Approach (ICD-10-PCS; principal; 2021-05-06)
PROC: B5181ZA Fluoroscopy of Superior Vena Cava using Low Osmolar Contrast, Guidance (ICD-10-PCS; 2021-05-06)
PROC: B548ZZA Ultrasonography of Superior Vena Cava, Guidance (ICD-10-PCS; 2021-05-06)
DX: K57.20 Diverticulitis of large intestine with perforation and abscess without bleeding (principal); E46 Unspecified protein-calorie malnutrition; K76.0 Fatty (change of) liver, not elsewhere classified; G89.29 Other chronic pain; R91.1 Solitary pulmonary nodule; Z88.1 Allergy status to other antibiotic agents; Z68.37 Body mass index [BMI] 37.0-37.9, adult
CPT/HCPCS: 36415; 36573; 71045; 74176; 74177; 77001; 80048; 80053; 82962; 83605; 83690; 84145; 84484; 85025; 85027; 86140; 87040; 93005; 96361; 96374; 96375; 96376; C1751; C1892; J1956; J2270; J2405; J2543; J3370; J3490; J7030; J7040; Q9966; Q9967; 99285-25; G0378

== ENCOUNTER → 2021-05-21 | Outpatient (CLI) | payer BC ==
[2021-05-06 11:24] VITALS: BP 128/96
[~2021-05-21] MED LIST changes: +AMOX1TAB61 PO
--- NOTE | 2021-05-22 10:18 | RAD ---
Examination: MRI and MRCP abdomen without IV contrast. INDICATION: Abnormal CT, pancreatic duct. COMPARISON: CT dated 05/04/2021. TECHNIQUE: Multiplanar multisequence MRI and MRCP abdomen without IV contrast. 3-D coronal heavily T2 -weighted images performed. FINDINGS: Normal morphology and size of the liver. Mild diffuse hepatic steatosis. No suspicious focal hepatic lesion, within the limitation of noncontrast exam. Sub-5 mm T2 hyperintense focus in the right hepati c dome, most consistent with simple cyst. Unremarkable gallbladder. No biliary ductal dilatation. The maximum diameter of the common bile duct measures 3 mm. Normal cystic duct. No splenomegaly. Mildly atrophic pancreatic parenchyma. Mildly dilated main pancreatic duct measures up to 5 mm at the head, smoothly tapered towards the ampulla. No adrenal nodule. No hydronephrosis in either kidney. Small simple appearing left parapelvic renal cyst. No lymphadenopathy in the abdomen by size criteria. Normal caliber abdominal aorta. No ascites. No bowel dilatation. Unremarkable visua lized lung bases. No suspicious osseous lesion. Intraosseous hemangioma at L1 vertebral body. IMPRESSION: 1. No acute abnormality in the abdomen, within the limitation of noncontrast exam. 2. Mildly dilated main pancreatic duct measures up to 5 mm at the head, smoothly tapered towards the ampulla, likely secondary to mild pancreatic parenchymal atrophic changes. No stricture, obstructing stone or discrete masses. 3. Mild diffuse hepatic steatosis 4. Other chronic/incidental findings, as described above. Electronically signed by: Vaishali Crabtree MD (05/22/2021 10:15 AM) [id number]
== END ==
LOC: MRI 09:24
PROVIDERS: ATTEND Internal Medicine Gastroenterology
DX: K76.0 Fatty (change of) liver, not elsewhere classified (principal); R93.5 Abnormal findings on diagnostic imaging of other abdominal regions, including retroperitoneum
CPT/HCPCS: 74181